=== PATIENT | female | born 2000 | race Caucasian/White ===

== ENCOUNTER 2022-07-16 13:42 | Outpatient (CLI) | payer OTHER, MEDICAID, SELFPAY | END 2022-07-16 13:43 | disposition home or self-care (01) | PROVIDERS: PCP Family Medicine; Visit Provider Nurse Practitioner Family | DX: R10.9 Unspecified abdominal pain (principal) | CPT/HCPCS: 87086 ==

== ENCOUNTER 2024-01-03 11:45 | Outpatient (CLI) | payer OTHER, SELFPAY ==
--- OUTSIDE RECORDS SUMMARY | 2024-01-03 11:46 | XMS_ITS | Clinical Summary ---
Author Organization [employer] [facility] Address [place], [place] [address] Care Team Providers Care Pipe Production Worker Name Role Phone Pcp, No Primary Care Provider Unavailabl e Allergies No known active allergies Medications No known medications Active Problems No known active problems Encounters Date Type Department Care Team Description 11/22/2023 9:30 AM CDT - 11/22/2023 10:03 AM CDT Emergency [facility] [place] [address] [place] [id number] Brianna Jackson MD Dog bite, initial encounter (Primary Dx) Discharge Disposition: Home Self Care 11/22/2023 Travel from Last 3 Months Immunizations Name Administration Dates Next Due DTaP 09/30/2006, 4,01/31/2002,2001,2001 HIB-HepB (Comvax) 08/16/2003,2001,09/20/19 02 Hepatitis A (Peds) 09/30/2006 Inactivated Polio Vaccine 09/30/2006,,2001,2001 MMR 09/12/2002 MMRV 09/30/2006 Pneumococcal conj 7-Valent ( Prevnar 7) 01/31/2002,2001,2001 Varicella Vaccine 09/12/2002 Social History Tobacco Use Types Packs/Day Years Used Date Smoking Tobacco: Never Assessed Sex and Gender Information Value Date Recorded Sex Assigned at Not on file Gender Identity Not on file Sexual Orientation Not on file Last Filed Vital Signs Vital Sign Reading Time Taken Comments Blood Pressure 140/72 11/22/2023 9:33 AM CDT Pulse 73 11/22/2023 9:33 AM CDT Temperature 36.3 ??C (97.3 ??F) 11/22/2023 9:33 AM CD T Respiratory Rate 16 11/22/2023 9:33 AM CDT Oxygen Saturation 98% 11/22/2023 9:33 AM CDT Inhaled Oxygen Concentration - - Weight 110.5 kg (243 lb 8 oz) 11/22/2023 9:33 AM CDT Height 167.6 cm (5' 6) 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 Body Mass Index - - Plan of Treatment Health Maintenance Due Date Last Done Comments Tdap 2012 Depression screening for age 12+ 2013 HIV for age 15-65 2016 HPV series for age 9-26 (1 - 3-dose series) 2016 BMI (ht and wt on same day) for age 18+ 2019 Hepatitis C screening for ag e 18-79 2019 Tetanus booster 2021 Pap test for age 21-65 2022 COVID-19 vaccine series ( season) 2023 01/21/2021, 12/31/2020 Influenza for age 9-49 01/30/2024 Pneumococcal series for age 6-64 Aged Out 01/31/2002, 2001, 2001 No longer eligible based on patient's age to complete this topic Care Teams Pipe Production Worker Relationship Specialty Start Date End Date Pcp, No . PCP - General 11/22/23
== END 2024-01-03 11:46 | disposition home or self-care (01) ==
LOC: NFLDREF 11:45
PROVIDERS: PCP Family Medicine; Visit Provider Obstetrics & Gynecology
DX: Z32.01 Encounter for pregnancy test, result positive (principal)
CPT/HCPCS: 84702

== ENCOUNTER 2024-01-05 14:08 | Outpatient (CLI) | payer OTHER, SELFPAY ==
--- OUTSIDE RECORDS SUMMARY | 2024-01-11 05:57 | XMS_ITS | Clinical Summary ---
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 PCP - General 11/22/23
== END 2024-01-05 14:09 | disposition home or self-care (01) ==
LOC: NFLDREF 01-11 05:56
PROVIDERS: PCP Family Medicine; Referring Provider Family Medicine; Visit Provider Obstetrics & Gynecology
DX: O20.9 Hemorrhage in early pregnancy, unspecified (principal)
CPT/HCPCS: 84702

== ENCOUNTER 2024-02-01 10:43 | Outpatient (CLI) | payer OTHER, SELFPAY ==
--- OUTSIDE RECORDS SUMMARY | 2024-02-01 10:46 | XMS_ITS | Clinical Summary ---
Author Organization [employer] [facility] Address [place], [place] [address] Care Team Providers Care Upward Bound Director Name Role Phone Pcp, No Primary Care Provider Unavailabl e Allergies No known active allergies Medications No known medications Active Problems No known active problems Encounters Date Type Department Care Team Description 11/22/2023 9:30 AM CDT - 11/22/2023 10:03 AM CDT Emergency [facility] [place] [address] [place] [phone] Brianna Jackson MD Dog bite, initial encounter [...] 167.6 cm (5' 6) 04/08/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 PCP - General 11/22/23
--- NOTE | 2024-02-01 11:00 | CRLHL7_ITS ---
For Patients: As a result of the Cures Act, medical imaging exams and procedure reports are released immediately into your electronic medical record. You may view this report before your referring provider. If you have questions, please contact your health care provider. INDICATION: First trimester scan, establish dates. COMPARISON: None. TECHNIQUE: Real-time wills-scale imaging of the pelvis was performed. FINDINGS: Sonographic imaging demonstrates a single living intrauterine gestation. The embryo demonstrates a regular cardiac rate measuring 163 beats per minute. The embryo`s crown-rump length measurement of 1.6 cm corresponds to a gestational age of 8 weeks 0 days with a sonographic due date of 09/12/2024. There is a normal-appearing yolk sac. There are no gross abnormalities noted within the embryo at this early state of development. The gestational sac has a normal appearance. There is no evidence of a perigestational hemorrhage. The amount of fluid within the sac appears appropriate for gestational age. The cervix is closed. The myometrium appears normal. Left ovary not visualized. Corpus luteal cyst right ovary. There are no suspicious fluid collections noted in the cul-de-sac. IMPRESSION: Normal first trimester OB ultrasound exam. Gestational age calculated at 8 weeks 0 days with a sonographic due date of 09/12/2024. Dictated by Gwyn Casey MD @ 02/01/2024 11:50:43 AM (Electronically Signed)
== END 2024-02-01 10:44 | disposition home or self-care (01) ==
PROVIDERS: PCP Family Medicine; Visit Provider Physician Assistant
DX: Z34.91 Encounter for supervision of normal pregnancy, unspecified, first trimester (principal); Z3A.08 8 weeks gestation of pregnancy
CPT/HCPCS: 76817

== ENCOUNTER 2024-02-01 12:13 | Outpatient (CLI) | payer OTHER, SELFPAY ==
--- OUTSIDE RECORDS SUMMARY | 2024-02-01 12:17 | XMS_ITS | Clinical Summary ---
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 PCP - General 11/22/23
== END 2024-02-01 12:14 | disposition home or self-care (01) ==
PROVIDERS: PCP Family Medicine; Visit Provider Physician Assistant
DX: Z34.81 Encounter for supervision of other normal pregnancy, first trimester (principal)
CPT/HCPCS: 86592; 86703; 86704; 86706; 86762; 86787; 86803; 86850; 86900; 86901; 87086; 87340

== ENCOUNTER 2024-03-22 08:47 | Outpatient (CLI) | payer OTHER, SELFPAY ==
--- OUTSIDE RECORDS SUMMARY | 2024-03-22 08:51 | XMS_ITS | Clinical Summary ---
Author Organization [employer] [facility] Address [place] [address] Care Team Providers Care Equipment Records Supervisor Name Role Phone Pcp, No Primary Care Provider Unavailabl e Allergies No known active allergies Medications No known medications Active Problems No known active problems Immunizations Name Administration Dates Next Due DTaP [...] 167.6 cm (5' 6) 04/08/2021 8:06 PM SANE RN Body Mass Index - - Plan of [...] age to complete this topic Care Teams Equipment Records Supervisor Relationship Specialty Start Date End Date Pcp, No . PCP - General 11/22/23
[2024-03-22 21:11] LABS: Chlamydia DNA Amplified* NOT DETECTED (No Detected); GC DNA Amplified* NOT DETECTED (No Detected)
== END 2024-03-22 08:48 | disposition home or self-care (01) ==
PROVIDERS: PCP Family Medicine; Visit Provider Obstetrics & Gynecology
DX: Z34.82 Encounter for supervision of other normal pregnancy, second trimester (principal)
CPT/HCPCS: 87491; 87591; 87624; 87625; 88141; 88142

== ENCOUNTER 2024-04-18 12:03 | Outpatient (CLI) | payer OTHER, SELFPAY ==
--- OUTSIDE RECORDS SUMMARY | 2024-04-18 12:05 | XMS_ITS | Clinical Summary ---
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 PCP - General 11/22/23
--- NOTE | 2024-04-18 12:15 | CRLHL7_ITS ---
For Patients: As a result of the Century Cures Act, medical imaging exams and procedure reports are released immediately into your electronic medical record. You may view this report before your referring provider. If you have questions, please contact your health care provider. OB ULTRASOUND ANATOMY, 04/18/2024 CLINICAL HISTORY: anatomy survey. TECHNIQUE: Transabdominal. FINDINGS: OMAYRA by LMP: 09/11/2024. GA: 19 weeks 1 day. POSITION: Vertex. CERVIX: Visualized. Technique: Transabdominal. Length of closed cervix: 4.0 cm. PLACENTA/CORD: Posterior. Technique: Transabdominal. Placenta tip to internal OS: 4.9 cm. Umbilical Cord: 3 vessel cord. Placental insertion: Central. AMNIOTIC FLUID: 4.8 cm. OBSERVED STRUCTURES: Calvarium/Spine Cerebellum: 1.9 cm, 19 weeks 6 days Cisternal Magna: 4.8 mm Nuchal Fold: 3.9 mm Lateral Ventricles: 5.9 mm CSP Choroid Plexus Midline Falx Spine ABDOMEN: Stomach Abd Cord Insert Urinary Bladder Kidneys borderline pelviectasis. Diaphragm FACE: Nose/Lips Orbital View Profile LIMBS: Upper Extremities Lower Extremities Hands Feet VASCULAR: 4 Ch Heart LVOT RVOT 3VV 3VTV BIOMETRY: BPD: 4.5 cm, 19 weeks 4 days. 71.4% HC: 17.2 cm, 19 weeks 6 days. 74.1% AC: 15.5 cm, 20 weeks 5 days. 89.4% FL: 3.2 cm, 19 weeks 6 days. 68.2% FL/AC: 20.343% HC/AC Ratio: 1.11 Heart Rate: 142 bpm Age by this US: 20 weeks 0 days OMAYRA by this US: 09/05/2024 EFW: 340.31 grams, 95.4% COMMENT: Borderline pelviectasis. Right renal pelvis measures 4 mm. Left renal pelvis measures 3 mm. IMPRESSION: Single live intrauterine gestation. Borderline renal pelviectasis measuring 4 mm and 3 mm. There are otherwise no gross anomalies visualized. Aury Harper M.D. Diagnostic/Breast Radiologist [email or web address] Transcribed: 9:20 am DW/Dictated by: Aury Harper MD @ 04/19/2024 9:01:00 AM (Electronically Signed)
== END 2024-04-18 12:04 | disposition home or self-care (01) ==
LOC: US 12:04
PROVIDERS: PCP Family Medicine; Visit Provider Obstetrics & Gynecology
DX: Z34.92 Encounter for supervision of normal pregnancy, unspecified, second trimester (principal); Z3A.19 19 weeks gestation of pregnancy
CPT/HCPCS: 76805

== ENCOUNTER 2024-06-13 08:14 | Outpatient (CLI) | payer OTHER, SELFPAY | END 2024-06-13 08:15 | disposition home or self-care (01) | LOC: NFLDREF 06-20 00:52 | PROVIDERS: PCP Family Medicine; Referring Provider Family Medicine; Visit Provider Obstetrics & Gynecology | DX: Z34.93 Encounter for supervision of normal pregnancy, unspecified, third trimester (principal) | CPT/HCPCS: 86592 ==

== ENCOUNTER 2024-07-21 10:55 | Outpatient (CLI) | payer OTHER, SELFPAY ==
--- NOTE | 2024-07-21 11:15 | CRLHL7_ITS ---
For Patients: As a result of the Century Cures Act, medical imaging exams and procedure reports are released immediately into your electronic medical record. You may view this report before your referring provider. If you have questions, please contact your health care provider. INDICATION: F/U pyelectasis on anatomy evaluation COMPARISON: 04/18/2024 TECHNIQUE: Real time wills scale imaging of the fetus was performed. FINDINGS: Sonographic imaging demonstrates a single living intrauterine gestation. Fetus demonstrates a regular cardiac rate of 126 beats per minute. Fetus has a vertex position. The placenta lies posteriorly. Amniotic fluid volume appears normal and there is a single deepest vertical pocket: 6.4 cm. Right renal pelvis measures 9.1 millimeters. Left renal pelvis measures 7.2 millimeters. Normal nose, lips, bladder and stomach. Previously, the right renal pelvis measured 4 millimeters in the left renal pelvis measured 3 millimeters. IMPRESSION: Bilateral renal pelviectasis measuring 9.1 millimeters and 7.2 millimeters. follow-up recommended. Dictated by Gwyn Casey MD @ 07/22/2024 2:03:32 PM (Electronically Signed)
== END 2024-07-21 10:56 | disposition home or self-care (01) ==
LOC: US 10:56
PROVIDERS: PCP Family Medicine; Visit Provider Obstetrics & Gynecology
DX: O35.EXX0 Maternal care for other (suspected) fetal abnormality and damage, fetal genitourinary anomalies, not applicable or unspecified (principal)
CPT/HCPCS: 76816

== ENCOUNTER 2024-08-14 19:31 | Outpatient (CLI) | payer OTHER, SELFPAY ==
[2024-08-14 19:54] VITALS: BP 134/81; PULSE 102; RESP 16; TEMP 36.9
[2024-08-14 19:55] VITALS: PULSE 102; O2SAT 97
[2024-08-14 20:16] LABS: Appearance Urine Clear (Clear); Bilirubin Urine Negative (Negative); Blood Urine Negative (Negative); Color Urine Yellow (Yellow); Glucose Urine Negative (Negative); Ketones Urine Negative (Negative); Leukocyte Esterase Urine 1+ (Negative); Nitrite Urine Negative (Negative); Protein Urine Negative (Negative); Urobilinogen Urine 0.2 (0.2-1.0)
[2024-08-14 20:26] LABS: Bacteria Urine Moderate; RBC Urine 0-2 (0-2); Squamous Epithelial Cell Urine Moderate (None-Few)
[2024-08-14] MEDS: ACETAMINOPHEN 500 MG TABLET 1000 MG PO (20:30)
[2024-08-14] MEDS: NITROFURANTOIN MONOHYD MACRO 100 MG CAPSULE PO (21:50)
--- NOTE | 2024-08-14 22:15 | PC.OBNST ---
NST Note NST Note Start: 08/14/24 19:37 Freq: ONCE Status: Active Protocol: Document 08/14/24 22:13 DUSTIN (Rec: 08/14/24 22:14 DUSTIN Mcgill) NST Note 2 Para (# of births) 1 EDC 09/11/24 Gestational Age In Weeks & Days 36 Weeks & 0 Days Patient Presented with Complaint(s) of Contractions/cramping,Pain If Pain, describe location back pain Other Complaints she reports she had deep cleaned the house 08/13 and felt like her baby was trying to claw out of her vagina and he was kicking a lot. Then today she has had on and off pain when walking, she reports going to the store and after she got back to her car was in so much pain she couldn't talk to her mom on the phone. UA positive and sent for culture, vaginitis panel and GBS swab collected. Prescription sent for UTI. Reactive Yes Appropriate for Gestational Age Yes KELLEE Noland RN Date 08/14/24 Reactive Yes Appropriate for Gestational Age Yes KELLEE Matthews RN Date 08/14/24 OB NST charge Yes Complete NST Note via Write Note Yes The provider's electronic signature indicates the NST is reactive/appropriate for gestational age. *Note to provider: If an addendum is required, open the patient's chart and click on the note under the Nurse/Allied Health tab.
[2024-08-14 22:28] LABS: Bacterial Vaginosis* Negative (Negative); Candida glab/krus NOT DETECTED (No Detected); Candida species DETECTED (No Detected); Trichomonas vaginalis NOT DETECTED (No Detected)
[2024-08-16 00:19] LABS: Strep B DNA Probe Negative (Negative)
[2024-08-16 02:21] LABS: Strep B Susceptibility Needed? No
== END 2024-08-14 22:03 | disposition home or self-care (01) ==
LOC: OB OUT 19:32 → OB 19:32
PROVIDERS: PCP Family Medicine; Visit Provider Obstetrics & Gynecology
DX: O47.03 False labor before 37 completed weeks of gestation, third trimester (principal); Z3A.36 36 weeks gestation of pregnancy
CPT/HCPCS: 59025; 81001; 81003; 81513; 87081; 87086; 87481; 87653; 87661; G0463; A9270

== ENCOUNTER 2024-08-18 13:57 | Outpatient (CLI) | payer OTHER, SELFPAY | END 2024-08-18 13:58 | disposition home or self-care (01) | LOC: US 13:57 | PROVIDERS: PCP Family Medicine; Visit Provider Obstetrics & Gynecology | DX: O36.63X0 Maternal care for excessive fetal growth, third trimester, not applicable or unspecified (principal); O35.EXX0 Maternal care for other (suspected) fetal abnormality and damage, fetal genitourinary anomalies, not applicable or unspecified; Z3A.36 36 weeks gestation of pregnancy | CPT/HCPCS: 76816 ==

== ENCOUNTER 2024-08-24 11:26 | Outpatient (CLI) | payer OTHER, SELFPAY | END 2024-08-24 11:27 | disposition home or self-care (01) | LOC: NFLDREF 08-25 03:13 | PROVIDERS: PCP Family Medicine; Referring Provider Family Medicine; Visit Provider Obstetrics & Gynecology | DX: Z34.93 Encounter for supervision of normal pregnancy, unspecified, third trimester (principal); Z3A.37 37 weeks gestation of pregnancy | CPT/HCPCS: 82728 ==

== ENCOUNTER 2024-09-04 09:18 | Inpatient (IN) | payer OTHER, SELFPAY ==
[2024-09-04] VITALS (19 sets, daily range): BP systolic 108–152; BP diastolic 57–104; PULSE 67–105; RESP 16; TEMP 36.7–37.1; O2SAT 98; BMI 40.5
[2024-09-04 10:04] LABS: Hemoglobin* 11.1 gm/dL (12.0-16.0); Mean Corpuscular HGB Conc 33 gm/dL (32-36); Mean Corpuscular Hemoglobin 26 pg (26-34); Mean Corpuscular Volume 80 fL (80-100); Platelet Count* 370 K/uL (140-440); Red Blood Count 4.23 m/uL (4.00-5.20); White Blood Count* 12.34 K/uL (4.50-11.00)
[2024-09-04 10:06] LABS: Slide Review Reflex No
[2024-09-04 10:15] LABS: Alanine Aminotransferase* 21 U/L (4-35); Aspartate Amino Transferase* 25 U/L (12-35); Blood Urea Nitrogen* 4 mg/dL (5-24); Creatinine* 0.5 mg/dL (0.5-1.5); Estimated Glomerular Filt Rate 135 ml/min
[2024-09-04 10:16] LABS: Total Protein Urine 11 mg/dL
[2024-09-04 10:17] LABS: Creatinine Urine 66.6 mg/dL; Protein Creatinine Ratio Urine 0.17 (0-0.19)
[2024-09-04] MEDS: miSOPROStoL 25 MCG/0.25 TABLET VAGINAL (14:55)
--- NOTE | 2024-09-04 14:58 | P.LDBA_ITS ---
Subjective History of Present Illness Time Seen by Provider: 15:02 Date Seen: 09/04/24 Narrative: Patient is being admitted to Labor and Delivery for induction of labor due to gestational hypertension. She is a 24 year old at 39.0 weeks gestation. Her full history and physical was dictated by Dr. Cole on 08/18/24. Please see this for details. Patient presented for routine care in clinic. During vitals check, she was noted to have high blood pressures of 148/88, 168/94. Denies any persistent headache, vision changes, SOB, right upper quadrant/epigastric pain, or rapidly expanding edema. She was then directed to labor and delivery which she continues to have mild range in blood pressures but no more severe range in blood pressures. Pre E labs were drawn: Hgb 11.1 Plt 370 Cr 0.5 ALT 21 AST 25 Protein creatinine ratio 0.17 Discussed with patient that she meets criteria for gestational hypertension. With this diagnosis, recommendation is to deliver at 37 weeks or at time of diagnosis if beyond 37 weeks. She is amenable to induction of labor. Denies LOF, vaginal bleeding or abnormal vaginal discharge. Specific Issues/Plans Spouse: Bony. Son: Nader. Baby: Boy! H&P done on 08/18/[address] Cole. # obesity, BMI 37.3 Hemoglobin A1c: 5.3 Aspirin 81 mg, family history of pre E in her mother [x] growth US at 36 weeks (95%ile at FAS, hx of macrosomia with prior at 9lb 3oz at 38w6d): EFW 88%, BPD >97%, HC 95%, AC 88%, FL 57% # Anemia dx at 37 weeks (Routine hgb missed previously) - 10.6 - Start supplemental iron marielle - CBC on admission for delivery # history of depression and anxiety, currently doing well without treatment # history of nicotine use, vaping. Quit with positive UPT # Hep B nonimmune: low risk. Planning repeat HepB series # Right renal pyelectasis 4 mm * Repeat US at 32 weeks: Bilateral renal pelviectasis measuring 9.1 millimeters and 7.2 millimeters. * Repeat ultrasound at 36 weeks: Right renal pelvis 9.9 mm, left 5.5 mm * follow-up recommended # Persistent nausea # Suspect GERD # Constipation - on miralax daily, failed to respond to colace Recommend starting senokot-S and omeprazole daily Goal to reduce zofran as this is highly constipating, Rx for reglan sent COVID: 03/22/24 Flu shot: 03/22/24 Tdap: 07/05/24 RSV: 08/01/2024 34 wk hgb: 10.6 on 08/24 GBS: Negative 08/14 Imagin04/18/2024: survey showed no anatomic abnormality except dilated right renal pelvis 4mm. EFW 95%. 07/21: R renal pelvis 9.1mm, L renal pelvis 7.2mm. Cephalic, MVP 6.4cm, FHR 126bpm 08/18/24: EFW 3383 g (88%), BPD >97%, HC 95%, AC 88%, FL 57%, SDP 5.7 cm, vertex. Right renal pelvis: 9.9 mm, left renal pelvis 5.5 mm. OB - Problem Based A/P Additional Plan (1) Gestational hypertension: Status: Acute Plan - Difficult to place cook given that cervix is very posterior. - Will give one dose of misoprostol 25 mcg and reassess Delivery/Labor/Induction Plan Plan: induction OB Exam Physical Exam Vital signs: Temp Pulse BP Pulse Ox 98.7 F 83 137/87 98 09/04/24 09:34 09/04/24 13:48 09/04/24 13:48 09/04/24 09:35 Narrative: Physical exam: General: No acute distress Psych: Alert and oriented x3, full affect HEENT: Normocephalic, atraumatic Lungs: Unlabored breathing Neuro: No focal deficit. Mentating appropriately Abdominal: Gravid. Cephalic. Soft, nontender, nondistended Pelvic exam: 1.5/60/-3, moderately soft, very posterior
[2024-09-04] MEDS: ACETAMINOPHEN 500 MG TABLET 1000 MG PO (17:22)
--- NOTE | 2024-09-04 18:33 | PM.OBPNL ---
Subjective Time Seen by Provider: 18:00 Date Seen: 09/04/24 Objective Vital Signs: Last Vital Signs Temp 98.7 F 09/04/24 09:34 Pulse 88 09/04/24 17:16 BP 125/71 09/04/24 17:16 Pulse Ox 98 09/04/24 09:35 Pelvic Exam Dilation (cm): 1.5 Effacement (%): 50 Station: -3 Comments: - s/p 1 dose of 25 mcg of misoprostol - Cook cath placed 50cc/50cc at 1800 without complications.
[2024-09-04] MEDS: MORPHINE 10 MG/ML inj IM (21:17)
[2024-09-04] MEDS: hydrOXYzine pamoate 25 MG CAPSULE 100 MG PO (21:17)
[2024-09-05] VITALS (98 sets, daily range): BP systolic 101–164; BP diastolic 54–88; PULSE 64–118; RESP 16–20; TEMP 36.5–37.3; O2SAT 86–100
[2024-09-05] MEDS: OXYTOCIN 30 unit/500 ML in NS 30 UNIT/500 ML BAG IVPB (00:22)
[2024-09-05] MEDS: LACTATED RINGERS 1000 ML 1,000 ML 125 ML IV ×3 (00:22→13:24)
[2024-09-05] MEDS: ONDANSETRON 2 MG/ML inj 4 MG IV (06:06)
--- NOTE | 2024-09-05 08:30 | PM.OBPNL ---
Subjective Time Seen by Provider: 10:00 Date Seen: 09/05/24 Narrative: Linda is a 24-year-old woman at 39 weeks, 1 day gestation here for induction of labor for gestational hypertension. otherwise complicated by BMI 37.3, anemia, depression anxiety. She has had 1 severe range blood pressures since admission. That being said, the majority of her blood pressures have been normal. She had a single dose of vaginal Cytotec, followed by Cook catheter for cervical ripening overnight. She has recently started to have strong contractions. Objective Exam: Gen - Doing side-lying release in bed Abd - Soft, NT, gravid, EFW 8 lbs SVE - 5 / 85 / -1. SROM on exam for clear fluid. Vital Signs: Last Vital Signs Temp 98.8 F 09/05/24 07:57 Pulse 74 09/05/24 08:01 Resp 20 09/05/24 07:57 BP 125/74 09/05/24 08:01 Pulse Ox 98 09/05/24 08:00 Comments: tracing: Baseline 140 / accels present / no decels / moderate variabilty. Contractions Q 2 min Pitocin at 13 mU / min Contractions Pitocin Rate (mU/min): 13 Assessment Amniotic Membrane Status: SROM Status: Category l Tracing Comments: Reassuring GBS negative Labor Progress: About to enter active labor. Progressing well on pitocin Maternal Status: Gestational HTN without severe features Plan Plan: Continue pitocin augmentation Continuous monitoring
[2024-09-05] MEDS: LIDOCAINE 2% (PF) 5 ML VIAL EPIDURAL (11:37)
[2024-09-05 12:24] LABS: Rapid Plasma Reagin (RPR) Non Reactive (Non Reactive)
[2024-09-05] MEDS: ROPIVACAINE 0.2% 100 ml 100 ML 12 MG EPIDURAL (12:24)
[2024-09-05] MEDS: PHENYLEPHRINE 100 MCG/ML SYRINGE IVP ×2 (12:28→12:29)
--- NOTE | 2024-09-05 12:30 | P.ANBPRC_ITS ---
[facility] Medical History Constipation ?K59.00 - Constipation, unspecified (ICD-10) Generalized anxiety disorder ?F41.1 - Generalized anxiety disorder (ICD-10) Recurrent major depressive disorder ?F33.9 - Major depressive disorder, recurrent, unspecified (ICD-10) Spontaneous vaginal delivery (04/11/19) ?O80 - Encounter for full-term uncomplicated delivery (ICD-10) History of suicidal ideation ?Z86.59 - Personal history of other mental and behavioral disorders (ICD-10) History of self mutilation ?Z91.52 - Personal history of nonsuicidal self-harm (ICD-10) Dermatitis ?L30.9 - Dermatitis, unspecified (ICD-10) Acne ?L70.9 - Acne, unspecified (ICD-10) Surgical History Osborne teeth removed ?K08.409 - Partial loss of teeth, unspecified cause, unspecified class (ICD- 10) Family History Maternal Grandmother Breast cancer Paternal Grandmother Ovarian cancer Mother Diabetes Maternal Grandfather Colon cancer Paternal Grandfather Colon cancer Social History Narrative: 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 Marital status: Single. Sikhism/cultural needs: no. Chemical or radiation exposure: no. Pre- tobacco use: Yes, occasional vaping. Pre- alcohol use: Occasional. Current tobacco use: no. Current alcohol use: no. Recreational drug use: no. Dietary restrictions: no. Blood transfusion acceptable in an emergency: yes. PSYCHOSOCIAL HISTORY: History of depression or currently depressed: Yes, history. Current or past physical, emotional, or sexual mistreatment: Denies. Problems that will make it hard to make it to appointments: Denies. What is your current living situation?: I presently have a place to live Problems where you live: no known problems In the past 12 months, utilities in danger of being shut off: no In past 12 months, lack of transportation kept you from medical appts, meetings, work, or getting things needed for daily living: no In the past 12 mos, have been you worried that your food would run out before you had money to buy more?: never true In the past 12 mos, the food you bought just didn't last and you didn't have money to buy more?: never true Highest level of school completed/degree received: high school graduate Physical activity type: walking Smoking Status: Never smoker Non-prescribed substance use: denies use How often does anyone, including family, friends and others, physically hurt you : never How often does anyone, including family, friends and others, insult or talk down to you: never How often does anyone, including family, friends and others, threaten you with harm: never How often does anyone, including family, friends and others, scream or curse at you: never Meds Home Medications and Allergies Home Medications ?Medication ?Instructions ?Recorded ?Confirmed ?Type [id number] 3-fat com #1 27 1 cap PO DAILY 02/01/24 09/04/24 History mg-1 mg-300 mg capsule aspirin 81 mg capsule 81 mg PO QDAY 03/22/24 09/04/24 History ferrous sulfate 325 mg (65 mg 325 mg PO Q OTHER DAY 08/30/24 09/04/24 History iron) tablet (Feosol) Allergies Allergy/AdvReac Type Severity Reaction Status Date / Time No Known Drug Allergies Allergy Verified 09/04/24 18:45 Results Labs Labs: Laboratory Results - last 24 hr 09/04/24 09:47 RPR Screen Non Reactive Blood Type O Positive Antibody Screen NEGATIVE Vital Signs Vital Signs: Last Vital Signs Temp 97.9 F 09/05/24 11:29 Pulse 88 09/05/24 12:29 Resp 20 09/05/24 11:29 BP 113/70 09/05/24 12:29 Pulse Ox 98 09/05/24 12:26 Weight: 117.435 kg Height: 170.18 cm Anesthesia Procedures Epidural Insertion Patient Location: OB Start Time: 11:30 Stop Time: :30 Start Date: 09/05/24 Stop Date: 09/05/24 Reason for Block: primary anesthetic Patient Position: sitting Performed By: Maverick Callahan Preanesthetic Checklist: IV checked, risks and benefits discussed, surgical consent, monitors and equipment checked, pre-op evaluation, timeout performed and anesthesia consent Prep: chlorhexidine gluconate Monitoring: blood pressure monitoring, rn cardiac rehab, continuous pulse oximetry and heart rate Approach: midline Vertebral Space: lumbar (1-5) Needle Type: Tuohy needle Injection Technique: continuous catheter Needle gauge: 17 Needle Length (cm): 10 cm Needle Insertion Depth (cm): 6 Catheter Gauge: 19 Catheter Type: multi-orifice Catheter at skin depth (cm): 12 Test Dose Result: negative and lidocaine 1.5% with epinephrine 1 to 200,000 Events: other
[2024-09-05] MEDS: fentaNYL 250 MCG/5 ML inj 100 MCG EPIDURAL (12:32)
[2024-09-05] MEDS: ACETAMINOPHEN 500 MG TABLET 1000 MG PO (14:26)
--- NOTE | 2024-09-05 16:11 | W.PM.VAGD1_ITS ---
Procedure Delivery date: 09/05/24 Procedure Done: Global Procedure Details: The patient is a 24 year-old G 2 P 1-0-0-1 woman admitted on 09/04/2024 at 39 Weeks, 0 Days gestation for induction of labor for gestational hypertension.? Cervical exam was unfavorable on admission with membranes intact in vertex presentation.? tracing was reassuring.? She had a single dose of vaginal Cytotec for cervical ripening, followed by Cook catheter. Labor began around 9:00 a.m. on 09/05/2024 SROM occurred at 10:09 a.m. on 09/05/2024 with clear fluid. ? Labor Analgesia:? Epidural ? Pitocin:? Yes ? Complete:? 2:46 p.m. ? Pushing:? 3:00 p.m. ? heart tones during second stage were reassuring. ? At 3:47 p.m. a viable male infant delivered in vertex TYE presentation over small second-degree perineal laceration via vaginal delivery.? Infant's head was delivered with maternal expulsive efforts. I was unable to deliver the anterior shoulder with gentle guidance of the head downward. Shoulder dystocia was diagnosed. The following maneuvers for employed to resolve the dystocia: * Tom maneuver, unsuccessful * Suprapubic pressure, unsuccessful * Delivery of the posterior shoulder, successful. I was able to insert my fingers, posteriorly to anteriorly, beneath the axilla and guide the shoulder outward through the introitus. The anterior shoulder was then delivered, followed by the remainder of the infant's body. Infant was placed briefly on maternal abdomen.? Cord was immediately clamped and cut and infant was passed off to attending nurses for assessment for resuscitation, which was not ultimately required. Total time from delivery of head to anterior shoulder was approximately 40 seconds. Nose and mouth were bulb suctioned.? Infant weight was 10 lb, 5 oz.? 7 at 1 minute and 9 at 5 minutes.? Nuchal cord: No. ? Placenta delivered spontaneously and complete at 3:51 p.m. with a 3 vessel cord. ? Mother and were stable after delivery. ? Lacerations:? Second-degree perineal, repaired with 2-0 Vicryl in the usual fashion. ? Blood loss: 200 mL. Blood loss measurement type: QBL ? Sponge and needles counts are correct. Events: Gestational Hypertension Intrapartal Events: Labor Augmentation and Labor Induction Delivery augmentation: pitocin Delivery monitor: external FHT Route of delivery: Laceration description: Perineal - 2nd Degree Delivery repair: Vicryl Estimated blood loss (mL): 200 Anesthesia type: Epidural
[2024-09-05] MEDS: IBUPROFEN 600 MG TABLET PO (16:37)
[2024-09-05] MEDS: NIFEdipine ER 30 MG TAB PO (18:43)
[2024-09-06 04:50] VITALS: BP 117/78; PULSE 83; RESP 16; TEMP 36.9; O2SAT 97
[2024-09-06 06:09] LABS: Basophils Percent Auto 0.2 % (0.0-3.0); Eosinophils Percent Auto 1.5 % (0.0-7.0); Hemoglobin* 10.4 gm/dL (12.0-16.0); Immature Granulocytes Pct Auto 0.4 %; Lymphocytes Percent Auto 23.5 % (20-44); Mean Corpuscular HGB Conc 33 gm/dL (32-36); Mean Corpuscular Hemoglobin 26 pg (26-34); Mean Corpuscular Volume 80 fL (80-100); Monocytes Percent Auto 7.9 % (0.0-11.0); Neutrophils Percent Auto 66.5 % (42.0-72.0); Platelet Count* 332 K/uL (140-440); Red Blood Count 3.98 m/uL (4.00-5.20); White Blood Count* 15.25 K/uL (4.50-11.00)
[2024-09-06 06:13] LABS: Slide Review Reflex No
[2024-09-06 06:26] LABS: Alanine Aminotransferase* 25 U/L (4-35); Aspartate Amino Transferase* 50 U/L (12-35); Blood Urea Nitrogen* 4 mg/dL (5-24); Creatinine* 0.5 mg/dL (0.5-1.5); Est. Creatinine Clearance* 170.17; Estimated Glomerular Filt Rate 135 ml/min
[2024-09-06 07:35] VITALS: BP 111/72; PULSE 89; RESP 18; TEMP 36.9; O2SAT 96
[2024-09-06] MEDS: IBUPROFEN 600 MG TABLET PO ×2 (08:11→15:03)
[2024-09-06] MEDS: DOCUSATE SODIUM 100 MG CAPSULE PO (08:11)
[2024-09-06] MEDS: NIFEdipine ER 30 MG TAB PO ×2 (08:11→20:59)
[2024-09-06 12:01] VITALS: BP 117/71; PULSE 98; RESP 16; TEMP 36.7; O2SAT 97
[2024-09-06] MEDS: ACETAMINOPHEN 500 MG TABLET 1000 MG PO ×2 (12:29)
--- NOTE | 2024-09-06 15:56 | P.OBPN_ITS ---
OB - PN:Subj Subjective Date Seen: 09/06/24 Narrative: Linda is a 24 year old G2 now P2002 who was admitted for IOL for GHTN and proceeded to have a vaginal with a 2nd degree laceration that was repaired.The patient feels well.? The pain is well controlled with current medications.? She has no new complaints.? Urinary output is adequate and she is voiding without difficulty.? Has a good appetite, is tolerating a general diet, is passing flatus, and has had a couple of bowel movements.? Has scant amount of rubra lochia.? She is ambulating well. She is and reports her nipples are very sore. Trinidad, the IBCLC, saw her today. She is using soothies. ?She is taking Nifedipine ER BID 30mg. No AYALA, vision changes or RUQ pain. OB - PN: Obj Exam Physical Exam: Vital signs: Temp Pulse Resp BP Pulse Ox O2 Del Method 98.1 F 98 16 117/71 97 Room Air 09/06/24 12:01 09/06/24 12:01 09/06/24 12:01 09/06/24 12:01 09/06/24 12:01 09/06/24 12:01 Narrative: GENERAL APPEARANCE:? normal affect, alert, no distress MOOD:? appropriate CHEST:? clear to auscultation HEART:? regular rate and rhythm ABDOMEN:? soft, non-tender the uterine fundus is At Umbilicus, Midline and is appropriate for the stage of recovery. PERINEUM:? deferred due to number of people visiting in the room EXTREMITIES:? normal and minimal edema OB - PN: Obj Data Labs Labs: Laboratory Results - last 24 hr 09/06/24 05:49 WBC 15.25 H RBC 3.98 L Hgb 10.4 L Hct 32.0 L MCV 80 MCH 26 MCHC 33 RDW Coeff of Alison 14.0 Plt Count 332 Neut % (Auto) 66.5 Lymph % (Auto) 23.5 [place] % (Auto) 7.9 Eos % (Auto) 1.5 Baso % (Auto) 0.2 Neut # (Auto) 10.10 H Lymph # (Auto) 3.60 H [place] # (Auto) 1.20 H Eos # (Auto) 0.20 Baso # (Auto) 0.00 Abs Immat Gran (auto) 0.10 Imm/Tot Granulo (auto) 0.4 BUN 4 L Creatinine 0.5 Estimated Creat Clear 170.17 Estimated GFR 135 AST 50 H ALT 25 OB - PN: A/P Delivery Assessment and Plan (1) care and examination of lactating mother: Status: Acute (2) Gestational hypertension: Status: Acute Plan Comments: PP day #1 Routine care May see as desired continue current medication for HTN regimen. Continue to work on effective latching. Pt warned baby will likely cluster feed tonight. Anticipate discharge 09/07/2024
[2024-09-06 16:57] VITALS: BP 127/84; PULSE 99; RESP 18; TEMP 36.8; O2SAT 97
[2024-09-06 20:15] VITALS: BP 116/79; PULSE 82; RESP 16; O2SAT 98
[2024-09-06 23:50] VITALS: BP 130/78; PULSE 86; RESP 16; TEMP 36.7; O2SAT 98
[2024-09-07 05:30] VITALS: BP 116/70; PULSE 77; RESP 16; TEMP 36.7; O2SAT 96
[2024-09-07] MEDS: ACETAMINOPHEN 500 MG TABLET 1000 MG PO (05:39)
[2024-09-07 06:10] LABS: Hematocrit 30.5 % (33.0-51.0); Hemoglobin* 9.7 gm/dL (12.0-16.0); Mean Corpuscular HGB Conc 32 gm/dL (32-36); Mean Corpuscular Hemoglobin 26 pg (26-34); Mean Corpuscular Volume 81 fL (80-100); Platelet Count* 355 K/uL (140-440); Red Blood Count 3.75 m/uL (4.00-5.20); White Blood Count* 11.86 K/uL (4.50-11.00)
[2024-09-07 06:12] LABS: Slide Review Reflex No
[2024-09-07 06:24] LABS: Alanine Aminotransferase* 29 U/L (4-35); Aspartate Amino Transferase* 49 U/L (12-35); Blood Urea Nitrogen* 6 mg/dL (5-24); Creatinine* 0.6 mg/dL (0.5-1.5); Est. Creatinine Clearance* 141.81; Estimated Glomerular Filt Rate 129 ml/min
--- NOTE | 2024-09-07 08:27 | P.DS_ITS ---
DS: Providers Provider Date Seen: 09/07/24 Date of admission: 09/04/24 09:18 Primary care physician: Jones Arnett MD Admitting Clinician: Nataliia Chavez MD Attending Physician on discharge: Diogo Montaño CNM Date of Discharge: 09/07/24 DS: Diagnosis Discharge Diagnosis (1) (normal spontaneous vaginal delivery): Status: Acute (2) care and examination of lactating mother: Status: Acute (3) Gestational hypertension: Status: Acute Exam Narrative: Exam Narrative: VSS. ?Afebrile GENERAL APPEARANCE: ?normal affect, alert, no distress MOOD: ?appropriate HEENT: normocephalic, neck supple, full ROM CHEST: ?Symmetrical chest wall movement. ?Normal respiratory effort. ?Clear to auscultation HEART: ?regular rate and rhythm ABDOMEN: ?soft, non-tender. Uterine fundus is firm, at Umbilicus, Midline and is appropriate for the stage of recovery. ?Bowel sounds present. PERINEUM:? mild edema of the perineum, there is a Perineal Laceration,? 2nd degree that is healing well. EXTREMITIES: ?normal and no edema SKIN: warm, dry. ? ? Const: Vital Signs, click to edit/add: Vital Signs - 24 hr 09/06/24 12:01 09/06/24 16:57 09/06/24 20:15 Temperature 98.1 F 98.2 F Pulse Rate [Pulse Oximeter] 98 99 82 Respiratory Rate 16 18 16 Blood Pressure [Ri ght Arm] 117/71 127/84 116/79 Pulse Oximetry 97 97 98 Oxygen Delivery Me thod Room Air Room Air Room Air 09/06/24 23:50 09/07/24 05:30 Temperature 98.0 F 98.0 F Pulse Rate [Pulse Oximeter] 86 77 Respiratory Rate 16 16 Blood Pressure [Ri ght Arm] 130/78 116/70 Pulse Oximetry 98 96 Oxygen Delivery Me thod Room Air Room Air Documenting provider has reviewed patient's vital signs: yes OB - DS: Summary Hospital Course Hospital Course: Linda is a 24 y.o. who was admitted to [facility] for labor. ?She had an uncomplicated NVD.?The patient feels well. ?The pain is well controlled with current medications. ?She has no new complaints. ?She is breast feeding and reports things are going well.? the patient has done well.? Vitals have been stable.? She has remained afebrile.? Has a good appetite, is tolerating a general diet. ?She is voiding without difficulty.? She is passing gas and has had a bowel movement.? She is ambulating and denies any dizziness.? Has Small amount of rubra lochia. ?She is planning an IUD for prevention. Peripartum Data delivery method: Vaginal Laceration description: Perineal - 2nd Degree complications: none [place] Gender: Male Infant Discharge Plan: Home Status at Discharge Functional status at discharge: independent ambulation Overall status at discharge: patient is progressing back to baseline Time Spent with Patient Time attestation: Total time spent providing and/or coordinating discharge services: Time spent: Less than 30 minutes Discharge Plan Discharge Disposition: Home, Self-Care Date of Admission: 09/04/24 09:18 Attending Provider on Discharge: Diogo Montaño Primary Care Provider: Jones Arnett Condition: Stable Anticipated Discharge Date/Time: 09/07/24 11:46 Discharge Medications: New nifedipine 30 mg Tablet Extended Release 30 mg PO Q12H Qty: 120 0RF ibuprofen 600 mg Tablet 600 mg PO Q6H PRNQty: 30 0RF Continued docusate sodium [Colace] 100 mg capsule 100 mg PO BID Qty: 60 2RF [id number]-mxvl-ST-omega 3-fat com #1 27-1-300 mg capsule 1 cap PO DAILY ferrous sulfate [Feosol] 325 mg (65 mg iron) tablet 325 mg PO Q OTHER DAY omeprazole 20 mg capsule,delayed release(DR/EC) 20 mg PO QDAY Qty: 30 0RF Discontinued aspirin 81 mg capsule 81 mg PO QDAY ondansetron 4 mg tablet,disintegrating 4 mg PO Q6-8H PRN (Reason: nausea and vomiting) Qty: 30 0RF Discharge Orders: Discharge Order (Routine); Ordered 09/07/24 Ordered By: Diogo Montaño Patient Education: Hypertension During (DC) Additional Instructions: ACTIVITY RESTRICTIONS: * Nothing vaginally for 6 weeks: no tampons/intercourse * Off of work/school for a minimum of 6 weeks Symptoms to report to doctor: -Bleeding that saturates more than one pad per hour ?-Passing clots larger than the size of a golf ball ?-Pain not relieved by prescribed medication ?-Fever above 100.4 degrees Fahrenheit ?-A foul vaginal odor ?-Difficulty in emotions, mood and functions ?-Thoughts of hurting yourself and/or ?-Painful, reddened area in your breast ?-Any drainage, redness or tenderness in your IV/epidural site ?-Severe headache that doesn't improve after taking medications ?-Changes in vision, including temporary loss of vision, blurred vision, and/or light sensitivity ?-Upper abdominal pain (usually under ribs on the right side) ?-Decrease in urination or painful, frequent urinating ?-Chest pain ?-Shortness of breath ?-Tenderness or pain with redness and/swelling in the calf(s) of your leg Follow-up: 1. Blood pressure check on Wednesday09/11/2024 2. [facility] in 2 weeks: contraceptive counseling, screen for anxiety/depression. 3. A 6 week visit for an annual physical exam. consultation services are available to all mothers and babies for the first year after delivery.? To make an appointment, please call [phone]. Activity Level: Activity as Tolerated and Other Discharge Diet: Regular Follow Up Appointments: [facility] [Outside] Forms: MyHealth Info Instructions
[2024-09-07 08:49] VITALS: BP 123/74; PULSE 87; RESP 16; TEMP 36.7; O2SAT 97
[2024-09-07] MEDS: DOCUSATE SODIUM 100 MG CAPSULE PO (08:54)
[2024-09-07] MEDS: NIFEdipine ER 30 MG TAB PO (08:54)
[2024-09-07 12:06] VITALS: BP 134/83; PULSE 95; RESP 16; TEMP 36.9; O2SAT 97
== END 2024-09-07 14:50 | disposition home or self-care (01) | DRG 807 ==
PROVIDERS: Obstetrics & Gynecology; Admitting Provider Obstetrics & Gynecology; PCP Family Medicine; Visit Provider Obstetrics & Gynecology
DX: O13.4 Gestational [pregnancy-induced] hypertension without significant proteinuria, complicating childbirth (principal); Z37.0 Single live birth; Z3A.39 39 weeks gestation of pregnancy; Z79.82 Long term (current) use of aspirin; O99.214 Obesity complicating childbirth; E66.9 Obesity, unspecified; O99.344 Other mental disorders complicating childbirth; F32.A Depression, unspecified; O99.02 Anemia complicating childbirth; D64.9 Anemia, unspecified; O99.62 Diseases of the digestive system complicating childbirth; K21.9 Gastro-esophageal reflux disease without esophagitis; O70.1 Second degree perineal laceration during delivery; K59.00 Constipation, unspecified; R11.0 Nausea; Z78.9 Other specified health status; Z87.59 Personal history of other complications of pregnancy, childbirth and the puerperium; O35.EXX0 Maternal care for other (suspected) fetal abnormality and damage, fetal genitourinary anomalies, not applicable or unspecified; Z87.891 Personal history of nicotine dependence; O66.0 Obstructed labor due to shoulder dystocia
CPT/HCPCS: 01967; 36415; 59200; 82565; 82570; 84156; 84450; 84460; 84520; 85025; 85027; 86592; 86850; 86900; 86901; 88307; A9270; C1726; J2270; J2371; J2405; J2795; J3010; J7120

== ENCOUNTER 2024-09-08 13:11 | Outpatient (CLI) | payer OTHER, SELFPAY ==
--- NOTE | 2024-09-08 15:51 | P.LACCB_ITS ---
Consult Note - Mom Date of Visit Date of visit: 09/08/24 Reason for consultation: Assistance Needed and Infant Weight Concern Visit Code: Visit Patient's Information Phone number: [phone] : 2 Para: 2 Allergies No Known Drug Allergies Allergy (Verified 09/04/24 18:45) Mother's Medical History: Medical History (Updated 09/07/24 @ 07:57 by Trinidad Waggoner MD) Family history of colon cancer ?Z80.0 - Family history of malignant neoplasm of digestive organs (ICD-10) Family history of breast cancer ?Z80.3 - Family history of malignant neoplasm of breast (ICD-10) Social phobia ?F40.10 - Social phobia, unspecified (ICD-10) Vulvovaginal candidiasis ?B37.31 - Acute candidiasis of vulva and vagina (ICD-10) GERD (gastroesophageal reflux disease) ?K21.9 - Gastro-esophageal reflux disease without esophagitis (ICD-10) Constipation ?K59.00 - Constipation, unspecified (ICD-10) Generalized anxiety disorder ?F41.1 - Generalized anxiety disorder (ICD-10) Recurrent major depressive disorder ?F33.9 - Major depressive disorder, recurrent, unspecified (ICD-10) Spontaneous vaginal delivery (04/11/19) ?O80 - Encounter for full-term uncomplicated delivery (ICD-10) History of suicidal ideation ?Z86.59 - Personal history of other mental and behavioral disorders (ICD-10) History of self mutilation ?Z91.52 - Personal history of nonsuicidal self-harm (ICD-10) Dermatitis ?L30.9 - Dermatitis, unspecified (ICD-10) Acne ?L70.9 - Acne, unspecified (ICD-10) Delivery Information Delivery type: Vaginal Gestational Age: 39+1 Gestational Weight For Age: LGA Weight: 4.685 kg Discharge Weight: 4.366 kg Percentage weight loss: 6.8 Baby's Information Baby's Age at Visit: 3 days Baby's Provider or Clinic: [facility] Jaundice: Yes Past Experience Past Experience: Yes (x 2 years) Current Frequency of Day Feedings: all the time barely can put him down Frequency of Night Feedings: same Both Breasts: Yes Suck: strong Latch: shallow, painful. A little better since yesterday but still hurts Length of Time: 15-20 min ea side, then feeds again in an hour or so Goals: at least 1 year Pumping Pumping: No Supplementing EBM Supplement: Yes (using a friends donor milk) Formula Supplement: No Baby Elimination Number of Wet Diapers a Day: 5 in the last 24 hours Number of BM a Day: 3 in last 24 hours Breast/Nipple Condition Breast Information: Breasts are symmetrical with rounded lower quadrants, intramammary distance is less than 1.5 inches. No erythema. Nipples are supple, everted prior to feeding. Mom feeling fullness of milk coming in since midnight Breast Shape: Round Engorgement: Yes (slight, fullness better after nursing here in outpatient clinic) Interventions for Engorgement: Hand Expressing Breast Milk Maternal Nipple Condition - Left: Common Nipple and Other (small blister ) Maternal Nipple Condition - Right: Common Nipple and Other (small blister) Sore Nipples: Yes Interventions for Sore Nipples: Lansinoh/Nipple Cream and Soothies/Hydrogel Pads (doesn't like how these feel) Baby Assessment Skin: Normal Tongue/frenulum: Normal/elastic Palate: Average Lips: Relaxed and Symmetrical Jaw Alignment: Symmetrical Mucosa: [place], moist Onsite Observation Pre-Feed weight: 4.204 kg (10.3% weight loss from ) Post-Feed weight: 4.242 kg Milk Transferred (mL): 38 Position: Cross cradle Attachment/latch-on achieved: With difficulty (needed several attempts at relatch to get wide/deep enough latch) Suck pattern: Suck burst and normal rest Swallow: Audible, consistent Behavior following feed: Relaxed, sleepy Pre-Nursing Left Nipple: Crusting/Scabs (small healing blister) Pre-Nursing Right Nipple: Crusting/Scabs (small healing blister) Post-Nursing Left Nipple: Within Normal Limits Post-Nursing Right Nipple: Within Normal Limits Assessments/Interventions Assessments/Interventions: hubert latched well to both breasts and transferred 38ml for this feeding mom states this was his best feeding yet - more comfortable for her and more engaged in the feeding for him Mom's milk is in and lots of swallowing was heard. mom could tell when he was actively drinking vs when he switched to a flutter suck Education provided: Early feeding cues to maximize timing of latching, Asymmetric latch technique for wide/deep latch to increase milk, Transfer for baby and increase comfort for mom, Supply/demand nature of milk supply, Sore nipple treatment options (nipple cream and breast shells; may get silverettes- not to be used with creams) and Pumping for milk management Feeding Plan: Breastfeed for 10-15 on each breast, listening for active swallowing Pump both breasts as needed to relieve fullness as milk comes in only if needed Feed baby 15-30 ml of pumped milk after until baby not wanting the supplement given >1-% weight loss and jaundice Use a syringe/feeding tube, cup, or bottle for feedings based on preference- syringe and feeding tube SNS system given and discussed with family at visit today Rest, and repeat every 2-3 hours, watch for early feeding cues Follow-Up Recommend baby be seen by provider for:: keep f/u appt scheduled for 09/11 call center over the weekend for f/u if: not voiding/stooling as expected per chart, increased jaundice, not feeding every 2-3 hours, any other concerns Recommend mom be seen by provider for:: her provider if any symptoms related to preE Time Spent Time spent with patient (min): 90 (reviewing EMR and face to face with patient, and ) Meds Home Medications and Allergies Home Medications ?Medication ?Instructions ?Recorded ?Confirmed ?Type BJM-rwcr-RP-omega 3-fat com #1 27 1 cap PO DAILY 02/01/24 09/04/24 History mg-1 mg-300 mg capsule ferrous sulfate 325 mg (65 mg 325 mg PO Q OTHER DAY 08/30/24 09/04/24 History iron) tablet (Feosol) Allergies Allergy/AdvReac Type Severity Reaction Status Date / Time No Known Drug Allergies Allergy Verified 09/04/24 18:45
== END 2024-09-08 13:12 | disposition home or self-care (01) ==
PROVIDERS: PCP Family Medicine; Visit Provider Obstetrics & Gynecology
DX: Z39.1 Encounter for care and examination of lactating mother (principal)
CPT/HCPCS: G0463

== ENCOUNTER 2024-09-08 20:19 | Inpatient (IN) | payer OTHER, SELFPAY ==
[2024-09-08] VITALS (22 sets, daily range): BP systolic 101–160; BP diastolic 58–97; PULSE 86–105; RESP 5–25; TEMP 37.2–37.5; O2SAT 96–99; BMI 38.2
--- OUTSIDE RECORDS SUMMARY | 2024-09-08 20:21 | XMS_ITS | Clinical Summary ---
Author Organization [facility] Address [address] [place] [id number] Care Team Providers Care Avionics Mechanic Name Role Phone Pcp, No Primary Care Provider Unavailabl e Allergies No known active allergies Medications No known medications Active Problems No known active problems Encounters Date Type Department Care Team Description 09/06/2024 Lab Requisition [facility] [phone] Brie Richards MD from Last 3 Months Immunizations Immunization Administration Dates Next Due DTaP 09/30/2006, 4,01/31/2002,2001,2001 HIB-HepB (Comvax) 08/16/2003,2001,09/20/19 02 Hepatitis A (Peds) 09/30/2006 Inactivated Polio Vaccine 09/30/2006,,2001,2001 MMR 09/12/2002 MMRV 09/30/2006 Pneumococcal conj 7-Valent ( Prevnar 7) 01/31/2002,2001,2001 Varicella Vaccine 09/12/2002 Social History Tobacco Use Types Packs/Day Years Used Date Smoking Tobacco: Never Assessed Interpersonal Safety Answer Date Record ed Are you being hit, kicked, p ushed or yelled at (see row info)? No 11/22/2023 Interpersonal Safety Abuse 12 - 18 Not on file 11/22/2023 Interpersonal Safety Ambulatory Vulnerability No t on file 11/22/2023 Comments No Sex and Gender Information Value Date Recorded Sex Assigned at Not on file Legal Sex Female 5:45 AM [employer] Gender Identity Not on file Sexual Orientation [...] 167.6 cm (5' 6) 04/08/2021 8:06 PM [employer] Body Mass Index - - Plan of [...] series ( season) 2024 01/21/2021, 12/31/2020 Influenza Vaccine (Season Ended) 2025 Pneumococcal series for age 6-49 Aged Out 01/31/2002, 2001, 2001 No longer eligible based on patient's age to complete this topic Procedures Procedure Name Priority Date/Time Associated Diagnosis Comments PATH TISSUE EXAM PLACENTA Routine 09/05/2024 3:47 PM CDT from Last 3 Months Results * PATH TISSUE EXAM PLACENTA (09/05/2024 3:47 PM CDT) Case Report Pathology Report Case: [id number] Authorizing Provider: Brie Richards MD Collected: 09/05/2024 [id number] Ordering Location: [facility] Received: 09/06/2024 1449 Pathologist: Jessica Lowery MD Specimen: Placenta 09/08/2024 2:44 PM CDT [facility] Final Diagnosis A) PLACENTA, VAGINAL DELIVERY: 1. Third trimester grijalva placenta with the following characteristics: a. Weight: 680 grams (39 week 10-90th percentile weight range, 426 - 611 grams) b. Membranes/ surface: Negative for chorioamnionitis c. Umbilical cord: Three vessel cord Negative for funisitis d. Disc/Villi: Chorionic villi consistent with gestational age Negative for villitis Placental disc with focal infarct (<5% of disc involved) e. Decidua/basal plate: No diagnostic abnormalities identified 09/08/2024 2:44 PM CDT [facility] at 1444 CDT Comment The patient's clinical history of hypertension is noted. Some histologic features that can be associated with maternal hypertensive disorders include decidual vasculopathy, infarcts, abruption, villous maldevelopment, and small placental size. 09/08/2024 2:44 PM CDT [facility] Clinical Information Maternal hypertension. G2, P1. 39-week vaginal delivery. Infant weight: 4685 g male born on 09/05/2023 at 15:47 09/08/2024 2:44 PM CDT [facility] Gross Description A) Received fresh labeled with the patient's name and date of , is a 680 gram, 24 x 22 x 3 cm grijalva placenta. The surface is blue-wills with normal vasculature. The 16.5 cm long, 1.0 cm diameter trivascular umbilical cord is eccentrically inserted 6.5 cm from the nearest edge of the placental plate. The umbilical cord averages 2 coils per 10 cm. The extraplacental membranes are cmnulty-pink, thick, semitranslucent and are marginally inserted. The maternal surface consists of red-purple, spongy, intact cotyledons that grossly appear to be 100% complete. Sectioning reveals a 1.2 x 1.0 x 1.0 cm pale yellow, friable, ill-defined parenchymal lesion, which makes up less than 5% of the total placental tissue. The remaining parenchyma consists of red-purple, spongy, homogenous tissue. [employer] Work sections are submitted: 1. membranes and insertion 2. Umbilical cord 3. Placental disc, full-thickness, umbilical cord insertion site 4-5. Central disc, full-thickness 6. Parenchymal lesion Time and date in formalin: 1914 on 09/06/2024 [place] 09/06/2024 09/08/2024 2:44 PM CDT [facility] Microscopic Description The final diagnosis is based on microscopic examination of appropriate sections of all specimens. 09/08/2024 2:44 PM CDT [facility] Additional Information Interpreted at [facility] - [address] [facility] [[email or web address] [address], [place] [address] 09/08/2024 2:44 PM CDT [facility] Tissue SPECIMEN FROM PLACENTA / Unknown 09/05/2024 3:47 PM CDT 09/06/2024 2:49 PM CDT Brie Richards MD PATHOLOGY/CYTOLOGY Final Result [facility] [address] [place] [address], [place] from Last 3 Months Insurance JOSEASHLEE WELLS [id number] Care Teams Avionics Mechanic Relationship Specialty Start Date End Date Pcp, No . PCP - General 11/22/23
--- NOTE | 2024-09-08 20:36 | ED.GENADULT ---
HPI - General Adult General Chief complaint: Post OB/Post- Complication Stated complaint: 3 days , high BP Time Seen by Provider: 09/08/24 20:36 History of Present Illness HPI narrative: Pt delivered here at [facility]. Pt states she was discharged yesterday from OB department. Pt c/o dizziness, swelling throughout extremities, headache, feeling out of it, and hypertension that started today. Pt took BP at home: 171 /113 at 1900 tonight and 185 /123 at 1910. Pt denies high blood pressure or complications with . . 24-year-old 3 days post her with concern of elevated blood pressure. Vaginal delivery 3 days ago. Was diagnosed with gestational hypertension. Discharged with nifedipine 30 mg twice daily. Did not get her repeat dose of nifedipine today due to problems with the pharmacy. Feeling a little bit ?out of it? check blood pressure noting 171/113 and subsequently little higher. Noticed swelling in her hands and feet. Had slight headache. Slight blurriness of vision. No significant abdominal pain. No shortness of breath. Admittedly this swelling is a little improved at this point. Related Data Home Medications ?Medication ?Instructions ?Recorded ?Confirmed acetaminophen 325 mg tablet (Pain 600 mg PO DAILY PRN 09/08/24 09/08/24 Relief (acetaminophen)) Previous Rx's ?Medication ?Instructions ?Recorded nifedipine 30 mg tablet,extended 30 mg PO Q12H #120 tabs 09/07/24 release Allergies Allergy/AdvReac Type Severity Reaction Status Date / Time No Known Drug Allergies Allergy Verified 09/08/24 20:32 Review of Systems Status of ROS: Reports: 6 or more systems reviewed and unremarkable except as noted in History and below [facility] Medical History Family history of colon cancer ?Z80.0 - Family history of malignant neoplasm of digestive organs (ICD-10) Family history of breast cancer ?Z80.3 - Family history of malignant neoplasm of breast (ICD-10) Social phobia ?F40.10 - Social phobia, unspecified (ICD-10) Vulvovaginal candidiasis ?B37.31 - Acute candidiasis of vulva and vagina (ICD-10) GERD (gastroesophageal reflux disease) ?K21.9 - Gastro-esophageal reflux disease without esophagitis (ICD-10) Constipation ?K59.00 - Constipation, unspecified (ICD-10) Generalized anxiety disorder ?F41.1 - Generalized anxiety disorder (ICD-10) Recurrent major depressive disorder ?F33.9 - Major depressive disorder, recurrent, unspecified (ICD-10) Spontaneous vaginal delivery (04/11/19) ?O80 - Encounter for full-term uncomplicated delivery (ICD-10) History of suicidal ideation ?Z86.59 - Personal history of other mental and behavioral disorders (ICD-10) History of self mutilation ?Z91.52 - Personal history of nonsuicidal self-harm (ICD-10) Dermatitis ?L30.9 - Dermatitis, unspecified (ICD-10) Acne ?L70.9 - Acne, unspecified (ICD-10) Surgical History [place] teeth removed ?K08.409 - Partial loss of teeth, unspecified cause, unspecified class (ICD-10) Family History Maternal Grandmother Breast cancer Paternal Grandmother Ovarian cancer Mother Diabetes Maternal Grandfather Colon cancer Paternal Grandfather Colon cancer Social History Narrative: 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 Marital status: Single. Uatsdin/cultural needs: no. Chemical or radiation exposure: no. Pre- tobacco use: Yes, occasional vaping. Pre- alcohol use: Occasional. Current tobacco use: no. Current alcohol use: no. Recreational drug use: no. Dietary restrictions: no. Blood transfusion acceptable in an emergency: yes. PSYCHOSOCIAL HISTORY: History of depression or currently depressed: Yes, history. Current or past physical, emotional, or sexual mistreatment: Denies. Problems that will make it hard to make it to appointments: Denies. What is your current living situation?: I presently have a place to live Problems where you live: no known problems In the past 12 months, utilities in danger of being shut off: no In past 12 months, lack of transportation kept you from medical appts, meetings, work, or getting things needed for daily living: no In the past 12 mos, have been you worried that your food would run out before you had money to buy more?: never true In the past 12 mos, the food you bought just didn't last and you didn't have money to buy more?: never true Highest level of school completed/degree received: high school graduate Physical activity type: walking Smoking Status: Former smoker Non-prescribed substance use: denies use How often does anyone, including family, friends and others, physically hurt you: never How often does anyone, including family, friends and others, insult or talk down to you: never How often does anyone, including family, friends and others, threaten you with harm: never How often does anyone, including family, friends and others, scream or curse at you: never Exam Narrative: Exam Narrative: Pleasant. NAD. Nerves 2 through 12 intact. Mentating normally. Lungs appear to be clear. Heart in regular rate and rhythm. Abdomen is soft without significant abdominal pain. One beat clonus. Well-perfused peripherally. Hands do appear little puffy above baseline judging by fit of her ring. Const: Vital Signs, click to edit/add: Vital Signs - 24 hr 09/08/24 20:24 09/08/24 20:33 09/08/24 20:34 Temperature 99.5 F Pulse Rate 101 H 95 Pulse Rate [Pulse Oximeter] 87 Respiratory Rate 18 Blood Pressure 152/94 H Blood Pressure [Ri ght Upper Arm] 154/97 H Pulse Oximetry 96 98 Oxygen Delivery Me thod Room Air 09/08/24 20:46 09/08/24 21:01 09/08/24 21:05 Temperature Pulse Rate 101 H 86 95 Pulse Rate [Pulse Oximeter] Respiratory Rate 25 H 18 14 Blood Pressure 135/93 H Blood Pressure [Ri ght Upper Arm] Pulse Oximetry 97 97 98 Oxygen Delivery Me thod 09/08/24 21:15 09/08/24 21:36 09/08/24 21:37 Temperature Pulse Rate 94 99 Pulse Rate [Pulse Oximeter] Respiratory Rate 5 L 5 L 20 Blood Pressure 160/93 H Blood Pressure [Ri ght Upper Arm] Pulse Oximetry 98 99 Oxygen Delivery Me thod 09/08/24 21:45 09/08/24 22:00 09/08/24 22:03 Temperature Pulse Rate 105 H 105 H 105 H Pulse Rate [Pulse Oximeter] Respiratory Rate 22 20 14 Blood Pressure 151/90 H Blood Pressure [Ri ght Upper Arm] Pulse Oximetry 99 97 97 Oxygen Delivery Me thod 09/08/24 22:04 Temperature Pulse Rate 105 H Pulse Rate [Pulse Oximeter] Respiratory Rate 21 Blood Pressure Blood Pressure [Ri ght Upper Arm] Pulse Oximetry 98 Oxygen Delivery Me thod Documenting provider has reviewed patient's vital signs: yes Course Vital Signs Vital signs: Initial Vital Signs Temperature 99.5 F 09/08/24 20:24 Temperature Source Temporal Artery Scan 09/08/24 20:24 Pulse Rate 87 09/08/24 20:24 Respiratory Rate 18 09/08/24 20:24 Blood Pressure 154/97 H 09/08/24 20:24 Blood Pressure Mean 116 H 09/08/24 20:24 Blood Pressure Position Sitting 09/08/24 20:24 Pulse Oximetry 96 09/08/24 20:24 Oxygen Delivery Method Room Air 09/08/24 20:24 Vital Signs Temperature 99.5 F 09/08/24 20:24 Pulse Rate 87 09/08/24 20:24 Respiratory Rate 18 09/08/24 20:24 Blood Pressure 154/97 H 09/08/24 20:24 Pulse Oximetry 96 09/08/24 20:24 Oxygen Delivery Method Room Air 09/08/24 20:24 Temperature 97.5 F L 09/09/24 07:22 Pulse Rate 85 09/09/24 07:22 Respiratory Rate 18 09/09/24 07:22 Blood Pressure 119/72 09/09/24 07:22 Pulse Oximetry 96 09/09/24 07:22 Oxygen Delivery Method Room Air 09/09/24 07:22 Medications Administered Medications: Generic Name Dose Route Start Last Admin Trade Name Freq PRN Reason Stop Dose Admin Magnesium Sulfate 40 gm in 1,000 mls @ 50 mls/hr 09/08/24 22:28 09/08/24 23:27 Magnesium Infusion IVPB 2 gm/hr .Q20H SANAZ 50 mls/hr Administration 2 GM/HR Lactated Ringer's 1,000 mls @ 75 mls/hr 09/08/24 22:55 09/08/24 22:55 Lactated Ringers 1000 Ml IV 75 mls/hr .[id number] SANAZ Administration Discontinued Medications Generic Name Dose Route Start Last Admin Trade Name Freq PRN Reason Stop Dose Admin Sodium Chloride 1,000 mls @ 1,000 mls/hr 09/08/24 20:49 09/08/24 22:30 0.9 % Sodium Chloride 1000 Ml IV 09/08/24 21:48 Infused .Q1H ONE Infusion Magnesium Sulfate 4 gm in 100 mls @ 200 mls/hr 09/08/24 22:28 09/08/24 23:30 Magnesium Iv IVPB 09/08/24 22:57 Infused ONCE ONE Infusion Nifedipine 30 mg 09/08/24 20:53 09/08/24 21:00 Nifedipine 10 Mg Capsule PO 09/08/24 20:54 30 mg ONCE ONE Administration Medical Decision Making MDM Narrative Medical decision making narrative: Certainly preeclampsia or HELLP is in differential. Collect standard labs and monitor pressures here. Subsequent blood pressure was improved but then climbs again. Given therapy dose. Transaminases are notably elevated. Elevated LDH. Does not appear to meet criteria for HELLP I discussed this case with OB. Will be going over to OB for further monitoring and cares. Medical Records Medical records reviewed: Yes I reviewed the patient's medical records Lab Data Lab results reviewed: Yes I reviewed the patient's lab results Labs: Lab Results 09/08/24 09/08/24 Range/Units 20:55 21:31 WBC 12.20 H (4.50-11.00) K/uL RBC 4.23 (4.00-5.20) m/uL Hgb 11.0 L (12.0-16.0) gm/dL Hct 34.5 (33.0-51.0) % MCV 82 (80-100) fL MCH 26 (26-34) pg MCHC 32 (32-36) gm/dL RDW Coeff of [place]ison 14.3 (11.5-15.5) % Plt Count 413 (140-440) K/uL Neut % (Auto) 69.7 (42.0-72.0) % Lymph % (Auto) 21.7 (20-44) % [place] % (Auto) 6.1 (0.0-11.0) % Eos % (Auto) 2.0 (0.0-7.0) % Baso % (Auto) 0.2 (0.0-3.0) % Neut # (Auto) 8.50 H (1.7-7.0) K/uL Lymph # (Auto) 2.60 (0.90-2.90) K/uL [place] # (Auto) 0.70 (0.00-0.90) K/UL Eos # (Auto) 0.20 (0.00-0.50) K/uL Baso # (Auto) 0.00 (0.00-0.30) K/uL Abs Immat Gran (auto) 0.00 (0.00-0.30) K/uL Imm/Tot Granulo (auto) 0.3 % Sodium 139 (135-149) mmol/L Potassium 3.8 (3.6-5.1) mmol/L Chloride 107 (96-114) mmol/L Carbon Dioxide 21 (20-32) mmol/L Anion Gap 11 (7-15) mEq/L BUN 10 (5-24) mg/dL Creatinine 0.7 (0.5-1.5) mg/dL Estimated Creat Clear 121.55 Estimated GFR 125 ml/min Glucose 79 (60-115) mg/dL Uric Acid 5.6 (2.2-8.4) mg/dL Calcium 9.5 (8.4-10.6) mg/dL Magnesium 2.0 (1.5-2.6) mg/dL Total Bilirubin 0.5 (0.1-1.5) mg/dL Direct Bilirubin 0.3 (0.0-0.5) mg/dL AST 88 H (12-35) U/L ALT 70 H (4-35) U/L Alkaline Phosphatase 166 H (40-150) U/L Lactate Dehydrogenase 337 H (120-246) U/L Total Protein 6.3 (6.0-8.3) g/dL Albumin 3.9 (3.3-5.0) g/dL Urine Color Yellow (Yellow) Urine Appearance Clear (Clear) Urine pH 7.0 (5.0-8.5) Ur Specific [place] 1.015 (1.000-1.030) Urine Protein 2+ A (Negative) Urine Glucose (UA) Negative (Negative) Urine Ketones Negative (Negative) Urine Blood 3+ A (Negative) Urine Nitrite Negative (Negative) Urine Bilirubin Negative (Negative) Urine Urobilinogen 0.2 (0.2-1.0) Ur Leukocyte Esterase 1+ A (Negative) Urine RBC 10-25 A (0-2) Urine WBC 5-10 A (0-5) Ur Squamous Epith Cells Few (None-Few) Urine Bacteria Few A (None) U Random Total Protein 108 mg/dL Discharge Plan Discharge Clinical Impression: Pre-eclampsia Patient Disposition: Admitted As Inpatient Condition: Stable
[2024-09-08] MEDS: NIFEdipine 10 MG CAPSULE 30 MG PO (21:00)
--- OUTSIDE RECORDS SUMMARY | 2024-09-08 21:02 | XMS_ITS | Clinical Summary ---
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 Gender Identity Not on file Sexual Orientation [...] 167.6 cm (5' 6) 04/08/2021 8:06 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 Some histologic features that can be associated with maternal hypertensive disorders include decidual vasculopathy, infarcts, abruption, villous maldevelopment, and small placental size. 09/08/2024 2:44 PM CDT [facility] Clinical Information Maternal hypertension. G2, P1. 39-week vaginal delivery. Infant weight: 4685 g male born on 09/05/2023 at 15:47 09/08/2024 2:44 PM CDT [facility] Gross Description A) Received [...] per 10 cm. The extraplacental membranes are mcnulty-pink, thick, semitranslucent and are marginally inserted. The maternal surface consists of red-purple, spongy, intact cotyledons that grossly appear to be 100% complete. Sectioning reveals a 1.2 x 1.0 x 1.0 cm pale yellow, friable, ill-defined parenchymal lesion, which makes up less than 5% of the total placental tissue. The remaining parenchyma consists of red-purple, spongy, homogenous tissue. Aviation Manager sections are submitted: 1. membranes and insertion 2. Umbilical cord 3. Placental disc, full-thickness, umbilical cord insertion site 4-5. Central disc, full-thickness 6. Parenchymal lesion Time and date in formalin: 1914 on 09/06/2024 [place] 09/06/2024 09/08/2024 2:44 PM CDT [facility] LABORATORY-C ENTRAL LABORATORY Microscopic Description The final diagnosis is based on microscopic examination of appropriate sections of all specimens. 09/08/2024 2:44 PM CDT [facility]OR[facility]- ENTRAL LABORATORY Additional Information Interpreted at [facility] - [address] [facility] [address], [place] [address] 09/08/2024 2:44 PM CDT [facility] Tissue SPECIMEN FROM PLACENTA / Unknown 09/05/2024 3:47 PM CDT 09/06/2024 2:49 PM CDT Brie Richards MD PATHOLOGY/CYTOLOGY Final Result [facility] [address] [place] [address], [place] from Last 3 Months Insurance JOSEASHLEE WELLS [id number] Care Teams Load[employer] Dies Relationship Specialty Start Date End Date Pcp, No . PCP - General 11/22/23
[2024-09-08 21:06] LABS: Basophils Percent Auto 0.2 % (0.0-3.0); Hematocrit 34.5 % (33.0-51.0); Immature Granulocytes Pct Auto 0.3 %; Lymphocytes Percent Auto 21.7 % (20-44); Mean Corpuscular HGB Conc 32 gm/dL (32-36); Mean Corpuscular Hemoglobin 26 pg (26-34); Mean Corpuscular Volume 82 fL (80-100); Monocytes Percent Auto 6.1 % (0.0-11.0); Neutrophils Percent Auto 69.7 % (42.0-72.0); Platelet Count* 413 K/uL (140-440); RDW Coefficient of Variation % 14.3 % (11.5-15.5); Red Blood Count 4.23 m/uL (4.00-5.20)
[2024-09-08 21:15] LABS: Slide Review Reflex No
[2024-09-08 21:37] LABS: Albumin* 3.9 g/dL (3.3-5.0); Chloride* 107 mmol/L (96-114); Potassium* 3.8 mmol/L (3.6-5.1); Sodium* 139 mmol/L (135-149)
[2024-09-08 21:39] LABS: Alanine Aminotransferase* 70 U/L (4-35); Anion Gap 11 mEq/L (7-15); Aspartate Amino Transferase* 88 U/L (12-35); Blood Urea Nitrogen* 10 mg/dL (5-24); Carbon Dioxide* 21 mmol/L (20-32); Creatinine* 0.7 mg/dL (0.5-1.5); Est. Creatinine Clearance* 121.55; Estimated Glomerular Filt Rate 125 ml/min
[2024-09-08 21:40] LABS: Appearance Urine Clear (Clear); Bilirubin Urine Negative (Negative); Blood Urine 3+ (Negative); Color Urine Yellow (Yellow); Glucose Urine Negative (Negative); Ketones Urine Negative (Negative); Leukocyte Esterase Urine 1+ (Negative); Nitrite Urine Negative (Negative); Protein Urine 2+ (Negative); Specific Gravity Urine 1.015 (1.000-1.030); Urobilinogen Urine 0.2 (0.2-1.0)
[2024-09-08 21:40] LABS: Alkaline Phosphatase* 166 U/L (40-150); Bilirubin Direct* 0.3 mg/dL (0.0-0.5); Bilirubin Total* 0.5 mg/dL (0.1-1.5); Calcium* 9.5 mg/dL (8.4-10.6); Glucose* 79 mg/dL (60-115); Lactate Dehydrogenase* 337 U/L (120-246); Total Protein* 6.3 g/dL (6.0-8.3); Uric Acid* 5.6 mg/dL (2.2-8.4)
[2024-09-08] MEDS: 0.9 % SODIUM CHLORIDE 1000 ml 1,000 ML IV (21:45)
[2024-09-08 22:05] LABS: Bacteria Urine Few; Squamous Epithelial Cell Urine Few (None-Few)
--- NOTE | 2024-09-08 22:15 | P.OBCN_ITS ---
OB - CN: HPI Date of Consult Date Seen: 09/08/24 Consult date: 09/08/24 Requesting Physician: Megan Read MD Primary Care Provider: Jones Arnett MD Consult Narrative Reason for consult: gestational hypertension Narrative: The patient is a 24 year old G 2 P 2001 on PPD 3 who presents for re evaluation due to severely elevated blood pressures at home. Patient was admitted for IOL on 09/04/24 due to recent diagnosis of GHTN (mild range elevated blood pressures more than 4 hours apart). Delivery complicated by shoulder dystocia, patient with mild range elevated blood pressures and started on oral nifedipine 30mg daily. No significant lab work abnormalities at that time. Patient was discharged home on 09/07/24 and planned a follow up BP check clinic appointment on 09/11/24. Tonight patient called labor and delivery with concerns of BP reading at home of systolic in the 170s. Patient instructed to present to ED for evaluation. At ED BP found mild range elevated, but liver enzymes doubled consistent with severe symptoms. Patient aliyah states that she has noted blurry vision since yesterday, but denies headaches, pain in the upper abdomen. History History 2 Elective abortions Para 2 Spontaneous abortions Hx # Term Pregnancies 1 Ectopic pregnancies Hx # Pregnancies Multiple births Number of Living Children 1 Past Pregnancies Del. Date GA/Weeks Outcome Route wt Inf Gender Labor Lgth Anesthesia Location Provider Compli 04/11/19 38 live - full term vaginal delivery 3.969 kg Male 15hrs epidural [facility] Medical History (Updated 09/08/24 @ 22:43 by Megan Read MD) Family history of colon cancer ?Z80.0 - Family history of malignant neoplasm of digestive organs (ICD-10) Family history of breast cancer ?Z80.3 - Family history of malignant neoplasm of breast (ICD-10) Social phobia ?F40.10 - Social phobia, unspecified (ICD-10) Vulvovaginal candidiasis ?B37.31 - Acute candidiasis of vulva and vagina (ICD-10) GERD (gastroesophageal reflux disease) ?K21.9 - Gastro-esophageal reflux disease without esophagitis (ICD-10) Constipation ?K59.00 - Constipation, unspecified (ICD-10) Generalized anxiety disorder ?F41.1 - Generalized anxiety disorder (ICD-10) Recurrent major depressive disorder ?F33.9 - Major depressive disorder, recurrent, unspecified (ICD-10) Spontaneous vaginal delivery (04/11/19) ?O80 - Encounter for full-term uncomplicated delivery (ICD-10) History of suicidal ideation ?Z86.59 - Personal history of other mental and behavioral disorders (ICD-10) History of self mutilation ?Z91.52 - Personal history of nonsuicidal self-harm (ICD-10) Dermatitis ?L30.9 - Dermatitis, unspecified (ICD-10) Acne ?L70.9 - Acne, unspecified (ICD-10) Surgical History [place] teeth removed ?K08.409 - Partial loss of teeth, unspecified cause, unspecified class (ICD- 10) Family History Maternal Grandmother Breast cancer Paternal Grandmother Ovarian cancer Mother Diabetes Maternal Grandfather Colon cancer Paternal Grandfather Colon cancer Social History Narrative: Occupation: Works on a [employer] shop. Marital status: Single. Latter Day/cultural needs: no. Chemical or radiation exposure: no. Pre- tobacco use: Yes, occasional vaping. Pre- alcohol use: Occasional. Current tobacco use: no. Current alcohol use: no. Recreational drug use: no. Dietary restrictions: no. Blood transfusion acceptable in an emergency: yes. PSYCHOSOCIAL HISTORY: History of depression or currently depressed: Yes, history. Current or past physical, emotional, or sexual mistreatment: Denies. Problems that will make it hard to make it to appointments: Denies. What is your current living situation?: I presently have a place to live Problems where you live: no known problems In the past 12 months, utilities in danger of being shut off: no In past 12 months, lack of transportation kept you from medical appts, meetings, work, or getting things needed for daily living: no In the past 12 mos, have been you worried that your food would run out before you had money to buy more?: never true In the past 12 mos, the food you bought just didn't last and you didn't have money to buy more?: never true Highest level of school completed/degree received: high school graduate Physical activity type: walking Smoking Status: Never smoker Non-prescribed substance use: denies use How often does anyone, including family, friends and others, physically hurt you : never How often does anyone, including family, friends and others, insult or talk down to you: never How often does anyone, including family, friends and others, threaten you with harm: never How often does anyone, including family, friends and others, scream or curse at you: never Meds Home Medications and Allergies Home Medications ?Medication ?Instructions ?Recorded ?Confirmed ?Type acetaminophen 325 mg tablet (Pain 600 mg PO DAILY PRN 09/08/24 09/08/24 History Relief (acetaminophen)) Allergies Allergy/AdvReac Type Severity Reaction Status Date / Time No Known Drug Allergies Allergy Verified 09/08/24 20:32 OB - H&P: Exam Physical Exam: Vital signs: Temp Pulse Resp BP Pulse Ox O2 Del Method 99.5 F 105 H 14 151/90 H 97 Room Air 09/08/24 20:24 09/08/24 22:03 09/08/24 22:03 09/08/24 22:03 09/08/24 22:03 09/08/24 20:24 Narrative: VITAL SIGNS: As noted above. GENERAL APPEARANCE: Alert, cooperative female in no acute distress. MOOD & AFFECT: Normal. HEART: Regular rate and rhythm without murmurs. LUNGS: Lungs are clear to auscultation bilaterally. No crackles, wheezes, or rhonchi. ABDOMEN: Soft, non-distended and nontender. Well contracted. : Normal pp lochia. EXTREMITIES: Nonedematous. Well perfused. Nontender. NEURO: Intact. OB - Results Labs Labs: Short CBC 09/08/24 Range/Units 20:55 WBC 12.20 H (4.50-11.00) K/uL Hgb 11.0 L (12.0-16.0) gm/dL Hct 34.5 (33.0-51.0) % Plt Count 413 (140-440) K/uL BMP 09/08/24 20:55 Sodium 139 Potassium 3.8 Chloride 107 Carbon Dioxide 21 BUN 10 Creatinine 0.7 Glucose 79 Calcium 9.5 Liver Function 04/11/25 Range/Units 20:55 Total Bilirubin 0.5 (0.1-1.5) mg/dL Direct Bilirubin 0.3 (0.0-0.5) mg/dL AST 88 H (12-35) U/L ALT 70 H (4-35) U/L Alkaline Phosphatase 166 H (40-150) U/L Albumin 3.9 (3.3-5.0) g/dL Urine 09/08/24 Range/Units 21:31 Urine Color Yellow (Yellow) Urine Appearance Clear (Clear) Urine pH 7.0 (5.0-8.5) Ur Specific [place] 1.015 (1.000-1.030) Urine Protein 2+ A (Negative) Urine Glucose (UA) Negative (Negative) OB - CN: A/P Assessment and Plan (1) Gestational hypertension: Problem details: With severe features-transaminitis on PPD3 Status: Acute Plan Gestational hypertension with severe features on day 3. Recommend admission and start of Magnesium sulfate infusion for 24 hours for seizure prophylaxis. Continued observation for another 24 hours after completion of magnesium for BP monitoring. Will plan to complete labs q6 hours while magnesium infusion is ongoing. Will increase Nifedipine to 30mg BID. 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 Patient in agreement with plan.
[2024-09-08] MEDS: MAGNESIUM IV 4 GM/100 ML PIGGYBACK IVPB (22:52)
[2024-09-08] MEDS: LACTATED RINGERS 1000 ML 1,000 ML 75 ML IV (22:55)
[2024-09-08] MEDS: MAGNESIUM Infusion 40 GM/1,000 ML IV.SOLN IVPB (23:27)
[2024-09-09] VITALS (18 sets, daily range): BP systolic 106–138; BP diastolic 63–81; PULSE 72–100; RESP 14–18; TEMP 36.3–37.1; O2SAT 95–98
[2024-09-09 00:41] LABS: Total Protein Urine Random* 108 mg/dL
[2024-09-09 04:32] LABS: Hematocrit 31.7 % (33.0-51.0); Mean Corpuscular HGB Conc 32 gm/dL (32-36); Mean Corpuscular Hemoglobin 26 pg (26-34); Mean Corpuscular Volume 82 fL (80-100); Platelet Count* 413 K/uL (140-440); Red Blood Count 3.85 m/uL (4.00-5.20); White Blood Count* 11.53 K/uL (4.50-11.00)
[2024-09-09 04:54] LABS: Slide Review Reflex No
[2024-09-09 05:06] LABS: Alanine Aminotransferase* 62 U/L (4-35); Aspartate Amino Transferase* 82 U/L (12-35); Blood Urea Nitrogen* 7 mg/dL (5-24); Creatinine* 0.7 mg/dL (0.5-1.5); Est. Creatinine Clearance* 121.55; Estimated Glomerular Filt Rate 125 ml/min
[2024-09-09 05:14] LABS: Magnesium* 4.4 mg/dL (1.5-2.6)
[2024-09-09] MEDS: NIFEdipine ER 30 MG TAB PO ×2 (09:01→20:42)
[2024-09-09 10:52] LABS: Alanine Aminotransferase* 68 U/L (4-35); Aspartate Amino Transferase* 75 U/L (12-35); Blood Urea Nitrogen* 6 mg/dL (5-24); Creatinine* 0.7 mg/dL (0.5-1.5); Est. Creatinine Clearance* 121.55; Estimated Glomerular Filt Rate 125 ml/min
[2024-09-09 10:53] LABS: Magnesium* 5.1 mg/dL (1.5-2.6)
[2024-09-09] MEDS: LACTATED RINGERS 1000 ML 1,000 ML 75 ML IV (12:01)
--- NOTE | 2024-09-09 12:04 | PM.OBPNVD1 ---
OB - PN:Subj Subjective Time Seen by Provider: 12:05 Date Seen: 09/09/24 Narrative: Linda is a 24yo seen on hospital day 2 from readmission for preE with SF. was complicated by IOL on 09/04/24 due to recent diagnosis of GHTN where she was discharged on nifedipine XL 30mg daily. She returned to the ED on 09/08, where she was noted to have a blood pressure exacerbation in new severe features by transaminitis. Patient was initiated on magnesium sulfate and her eye antihypertensive regimen was increased to nifedipine XL 30 mg b.i.d.. Patient notes she is feeling pretty well today. She does feel a bit groggy on magnesium. Denies headache, vision changes or right upper quadrant pain. No chest pain or shortness of breath. Blood pressure control has been excellent on nifedipine 30 mg XL b.i.d. She has no other concerns such as heavy vaginal bleeding or pain. OB - PN: Obj Exam Physical Exam: Vital signs: Temp Pulse Resp BP Pulse Ox O2 Del Method 97.4 F L 95 16 122/73 98 Room Air 09/09/24 09:03 09/09/24 11:19 09/09/24 11:19 09/09/24 11:19 09/09/24 11:19 09/09/24 11:19 Narrative: General: Alert and oriented, no acute distress Psych: Appropriate mood and affect Heart: Regular rate and rhythm, no rubs murmurs or gallops Lungs: Clear to auscultation throughout Vital signs reviewed and are within normal limits. Serial labs have been trended, with interval improvement noted in her transaminitis. OB - PN: Obj Data Labs Labs: Laboratory Results - last 24 hr 09/08/24 09/08/24 09/09/24 20:55 21:31 04:18 WBC 12.20 H 11.53 H RBC 4.23 3.85 L Hgb 11.0 L 10.0 L Hct 34.5 31.7 L MCV 82 82 MCH 26 26 MCHC 32 32 RDW Coeff of Alison 14.3 Plt Count 413 413 Neut % (Auto) 69.7 Lymph % (Auto) 21.7 [place] % (Auto) 6.1 Eos % (Auto) 2.0 Baso % (Auto) 0.2 Neut # (Auto) 8.50 H Lymph # (Auto) 2.60 [place] # (Auto) 0.70 Eos # (Auto) 0.20 Baso # (Auto) 0.00 Abs Immat Gran (auto) 0.00 Imm/Tot Granulo (auto) 0.3 Sodium 139 Potassium 3.8 Chloride 107 Carbon Dioxide 21 Anion Gap 11 BUN 10 7 Creatinine 0.7 0.7 Estimated Creat Clear 121.55 121.55 Estimated GFR 125 125 Glucose 79 Uric Acid 5.6 Calcium 9.5 Magnesium 2.0 4.4 H* Total Bilirubin 0.5 Direct Bilirubin 0.3 AST 88 H 82 H ALT 70 H 62 H Alkaline Phosphatase 166 H Lactate Dehydrogenase 337 H Total Protein 6.3 Albumin 3.9 Urine Color Yellow Urine Appearance Clear Urine pH 7.0 Ur Specific [place] 1.015 Urine Protein 2+ A Urine Glucose (UA) Negative Urine Ketones Negative Urine Blood 3+ A Urine Nitrite Negative Urine Bilirubin Negative Urine Urobilinogen 0.2 Ur Leukocyte Esterase 1+ A Urine RBC 10-25 A Urine WBC 5-10 A Ur Squamous Epith Cells Few Urine Bacteria Few A U Random Total Protein 108 09/09/24 10:25 WBC RBC Hgb Hct MCV MCH MCHC RDW Coeff of Alison Plt Count Neut % (Auto) Lymph % (Auto) [place] % (Auto) Eos % (Auto) Baso % (Auto) Neut # (Auto) Lymph # (Auto) [place] # (Auto) Eos # (Auto) Baso # (Auto) Abs Immat Gran (auto) Imm/Tot Granulo (auto) Sodium Potassium Chloride Carbon Dioxide Anion Gap BUN 6 Creatinine 0.7 Estimated Creat Clear 121.55 Estimated GFR 125 Glucose Uric Acid Calcium Magnesium 5.1 H* Total Bilirubin Direct Bilirubin AST 75 H ALT 68 H Alkaline Phosphatase Lactate Dehydrogenase Total Protein Albumin Urine Color Urine Appearance Urine pH Ur Specific [place] Urine Protein Urine Glucose (UA) Urine Ketones Urine Blood Urine Nitrite Urine Bilirubin Urine Urobilinogen Ur Leukocyte Esterase Urine RBC Urine WBC Ur Squamous Epith Cells Urine Bacteria U Random Total Protein OB - PN: A/P Delivery Assessment and Plan (1) Pre-eclampsia: Status: Acute (2) (normal spontaneous vaginal delivery): Status: Acute (3) care and examination of lactating mother: Status: Acute Plan Ms. Monique is a 24yo seen on hospital day 2 after readmission for preE with SF (transaminitis). - Magnesium sulfate ongoing, ends at 2300 this evening - BP control is excellent, on a regimen of Nifedipine XL 30mg BID. Continue to monitor and adjust as needed. - Adequate UOP of 1550mL since admission - Serial HELLP labs Q6H while on magnesium, then PRN - No routine PP concerns Dispo: Inpatient, likely dismissal to home AM of 09/11 Plan Plan: routine care
[2024-09-09 15:53] LABS: Hematocrit 33.2 % (33.0-51.0); Hemoglobin* 10.4 gm/dL (12.0-16.0); Mean Corpuscular HGB Conc 31 gm/dL (32-36); Mean Corpuscular Hemoglobin 26 pg (26-34); Mean Corpuscular Volume 83 fL (80-100); Platelet Count* 429 K/uL (140-440); Red Blood Count 3.99 m/uL (4.00-5.20); White Blood Count* 11.11 K/uL (4.50-11.00)
[2024-09-09 15:54] LABS: Slide Review Reflex No
[2024-09-09 16:16] LABS: Hematocrit 31.9 % (33.0-51.0); Hemoglobin* 10.2 gm/dL (12.0-16.0); Mean Corpuscular HGB Conc 32 gm/dL (32-36); Mean Corpuscular Hemoglobin 26 pg (26-34); Mean Corpuscular Volume 82 fL (80-100); Platelet Count* 411 K/uL (140-440); Red Blood Count 3.91 m/uL (4.00-5.20); White Blood Count* 9.66 K/uL (4.50-11.00)
[2024-09-09 16:29] LABS: Slide Review Reflex No
[2024-09-09 16:30] LABS: Alanine Aminotransferase* 68 U/L (4-35); Aspartate Amino Transferase* 68 U/L (12-35); Blood Urea Nitrogen* 6 mg/dL (5-24); Creatinine* 0.6 mg/dL (0.5-1.5); Est. Creatinine Clearance* 141.81; Estimated Glomerular Filt Rate 129 ml/min
[2024-09-09 16:32] LABS: Magnesium* 5.4 mg/dL (1.5-2.6)
[2024-09-09] MEDS: MAGNESIUM Infusion 40 GM/1,000 ML IV.SOLN IVPB (19:11)
[2024-09-09 22:31] LABS: Hematocrit 34.8 % (33.0-51.0); Mean Corpuscular HGB Conc 32 gm/dL (32-36); Mean Corpuscular Hemoglobin 26 pg (26-34); Mean Corpuscular Volume 82 fL (80-100); Platelet Count* 461 K/uL (140-440); Red Blood Count 4.25 m/uL (4.00-5.20)
[2024-09-09 22:43] LABS: Slide Review Reflex No
[2024-09-09 22:44] LABS: Alanine Aminotransferase* 75 U/L (4-35); Aspartate Amino Transferase* 64 U/L (12-35); Blood Urea Nitrogen* 7 mg/dL (5-24); Creatinine* 0.6 mg/dL (0.5-1.5); Est. Creatinine Clearance* 141.81; Estimated Glomerular Filt Rate 129 ml/min
[2024-09-09 22:53] LABS: Magnesium* 5.4 mg/dL (1.5-2.6)
[2024-09-10] VITALS (9 sets, daily range): BP systolic 126–152; BP diastolic 66–95; PULSE 78–105; RESP 16; TEMP 36.6–37.1; O2SAT 96–99
--- NOTE | 2024-09-10 08:16 | PM.OBPNVD1 ---
OB - PN:Subj Subjective Time Seen by Provider: 08:16 Date Seen: 09/10/24 Narrative: Linda is a 24yo seen on hospital day 3 from readmission for preE with SF. was complicated by IOL on 09/04/24 due to recent diagnosis of GHTN where she was discharged on nifedipine XL 30mg daily. She returned to the ED on 09/08, where she was noted to have a blood pressure exacerbation in new severe features by transaminitis. Patient was initiated on magnesium sulfate and her eye antihypertensive regimen was increased to nifedipine XL 30 mg b.i.d.. Her magnesium was discontinued at 2300 yesterday. She notes feeling less flushed and like her thoughts are clearer off this, still feels a bit groggy. Denies headache, vision changes or RUQ pain. No chest pain or shortness of breath. Blood pressure control has been excellent on nifedipine 30 mg XL b.i.d. She has no other concerns such as heavy vaginal bleeding or pain. OB - PN: Obj Exam Physical Exam: Vital signs: Temp Pulse Resp BP Pulse Ox O2 Del Method 97.9 F 81 16 131/82 96 Room Air 09/10/24 07:58 09/10/24 07:58 09/10/24 07:58 09/10/24 07:58 09/10/24 07:58 09/10/24 07:58 Narrative: General: Alert and oriented, no acute distress Psych: Appropriate mood and affect Heart: Regular rate and rhythm, no rubs murmurs or gallops Lungs: Clear to auscultation throughout OB - PN: Obj Data Labs Labs: Laboratory Results - last 24 hr 09/09/24 09/09/24 09/09/24 10:25 16:11 22:25 WBC 11.11 H 9.66 10.70 RBC 3.99 L 3.91 L 4.25 Hgb 10.4 L 10.2 L 11.0 L Hct 33.2 31.9 L 34.8 MCV 83 82 82 MCH 26 26 26 MCHC 31 L 32 32 Plt Count 429 411 461 H BUN 6 6 7 Creatinine 0.7 0.6 0.6 Estimated Creat Clear 121.55 141.81 141.81 Estimated GFR 125 129 129 Magnesium 5.1 H* 5.4 H* 5.4 H* AST 75 H 68 H 64 H ALT 68 H 68 H 75 H OB - PN: A/P Delivery Assessment and Plan (1) Pre-eclampsia: Status: Acute (2) (normal spontaneous vaginal delivery): Status: Acute (3) care and examination of lactating mother: Status: Acute Plan Ms. Monique is a 24yo seen on hospital day 3 after readmission for preE with SF (transaminitis, BP elevation). She is s/p on 09/05 following IOL for gHTN. - She completed 24 hours of magnesium at 2300 on 09/09 - Denies headache, vision changes and RUQ pain. No signs specific for [employer]PERATOR irritability, patient does feel a bit groggy still question magnesium wearing off effect vs sleep deprivation. No focal neurologic deficits. - BP control is good, on a regimen of Nifedipine XL 30mg BID. She had a single mild range BP in the last 24 hours. Continue to monitor and adjust as needed. - Adequate UOP of 1500mL documented in the last 24 hours - Q6H HELLP labs were trended while on magnesium, AST has improved from peak of 88 to 64 at last set. ALT has demonstrated interval increase, however, at 75 this morning (70>62>68>68 throughout hospitalization). Recommend repeat set of HELLP labs today, about 12 hours from last set. Hopeful to see improvement in her ALT as all other clinical parameters are suggesting improvement of her HTN state. - No routine PP concerns Dispo: Inpatient, likely dismissal to home AM of 09/11
[2024-09-10] MEDS: NIFEdipine ER 30 MG TAB PO ×3 (08:59→21:54)
[2024-09-10 09:30] LABS: Alanine Aminotransferase* 58 U/L (4-35); Aspartate Amino Transferase* 41 U/L (12-35); Blood Urea Nitrogen* 9 mg/dL (5-24); Creatinine* 0.6 mg/dL (0.5-1.5); Est. Creatinine Clearance* 141.81; Estimated Glomerular Filt Rate 129 ml/min
[2024-09-10 13:31] LABS: Hematocrit 31.7 % (33.0-51.0); Hemoglobin* 9.9 gm/dL (12.0-16.0); Mean Corpuscular HGB Conc 31 gm/dL (32-36); Mean Corpuscular Hemoglobin 26 pg (26-34); Mean Corpuscular Volume 84 fL (80-100); Platelet Count* 446 K/uL (140-440); Red Blood Count 3.79 m/uL (4.00-5.20); White Blood Count* 9.66 K/uL (4.50-11.00)
[2024-09-10 13:34] LABS: Slide Review Reflex No
--- NOTE | 2024-09-10 19:52 | P.DS_ITS ---
DS: Providers Provider Date Seen: 09/10/24 Date of admission: 09/08/24 22:11 Primary care physician: Jones Arnett MD Admitting Clinician: Megan Read MD Attending Physician on discharge: Megan Read MD Exam Narrative: Exam Narrative: See exam from rounding note this AM. Repeat exam not performed. Const: Vital Signs, click to edit/add: Vital Signs - 24 hr 09/09/24 23:00 09/10/24 03:21 09/10/24 03:36 Temperature 98.1 F Pulse Rate [Pulse Oximeter] 96 87 Respiratory Rate 16 16 Blood Pressure [Le ft Arm] 132/79 141/84 H 128/79 Pulse Oximetry 97 97 Oxygen Delivery Me thod Room Air Room Air 09/10/24 07:58 09/10/24 12:06 09/10/24 16:52 Temperature 97.9 F 98.4 F 98.7 F Pulse Rate [Pulse Oximeter] 81 105 H 104 H Respiratory Rate 16 16 16 Blood Pressure [Le ft Arm] 131/82 138/82 142/89 H Pulse Oximetry 96 98 99 Oxygen Delivery Me thod Room Air Room Air Room Air 09/10/24 17:15 Temperature Pulse Rate [Pulse Oximeter] Respiratory Rate Blood Pressure [Le ft Arm] 126/85 Pulse Oximetry Oxygen Delivery Me thod OB - DS: Summary Hospital Course Hospital Course: Linda is a 24yo seen on hospital day 3 from readmission for preE with SF. was complicated by IOL on 09/04/24 due to recent diagnosis of GHTN where she was discharged on nifedipine XL 30mg daily. She returned to the ED on 09/08, where she was noted to have a blood pressure exacerbation in new severe features by transaminitis. Patient was initiated on magnesium sulfate (2/p 24 hours as of 09/09 at 2300) and antihypertensive regimen was increased to nifedipine XL 30 mg b.i.d.. At time of rounding this morning, she was agreeable to staying overnight to remain inpatient at least 24 hours s/p mag course. She did note some difficulty with childcare to be coordinated. She is now requesting early dismissal due to difficulty with childcare. She has remained normotensive today, aside from one mild range BP that was normal on recheck. Feeling well - no headache, vision changes of RUQ pain. Late morning labs noted interval improvement in transaminitis. Plan to dismiss to home this evening, around 2100. She will get her PM nifedipine prior to leaving, has 30mg tablets at home to continue BID. She was previously scheduled for a BP check in clinic tomorrow, encouraged her to keep this given early dismissal tonight. She expressed understanding and is in agreement. Time Spent with Patient Time attestation: Total time spent providing and/or coordinating discharge services: Time spent: Less than 30 minutes Discharge Plan Discharge Disposition: Home, Self-Care Date of Admission: 09/08/24 22:11 Primary Care Provider: Jones Arnett Condition: Stable Anticipated Discharge Date/Time: 09/10/24 21:00 Discharge Medications: Continued nifedipine 30 mg Tablet Extended Release 30 mg PO Q12H Qty: 120 0RF acetaminophen [Pain Relief (acetaminophen)] 325 mg tablet 600 mg PO DAILY PRN Discharge Orders: Discharge Order (Routine); Ordered 09/10/24 Ordered By: Mercedes Crews Additional Instructions: Discharge instructions were reviewed with the patient including signs and symptoms of infection and home going medications Nothing vaginally for 6 weeks: no tampons or intercourse Do not drive while taking narcotic pain medication(s) Off Work or School for 8 weeks Symptoms to report to doctor: * Bleeding that saturates more than one pad per hour * Passing clots larger than the size of a golf ball * Pain not relieved by prescribed medication * Fever above 100.4 degrees Fahrenheit * A foul vaginal odor * Difficulty in emotions, mood, and functions * Thoughts of hurting yourself and/or * Painful, reddened area in your breast * Any drainage, redness, or tenderness in your IV/epidural site * Severe headache that doesn't improve after taking medications * Changes in vision, including temporary loss of vision, blurred vision, and/or light sensitivity * Upper abdominal pain (usually under ribs on the right side) * Decrease in urination or painful, frequent urinating * Chest pain * Shortness of breath * Tenderness or pain with redness and/swelling in the calf(s) of your leg [facility] for a BP check - Tomorrow as previously scheduled Call with BP greater than or equal to 160/110 2-week visit: discuss feeding concerns, review control options and screen for anxiety/depression. 6-week visit for an annual exam. consultation services are available to all mothers and babies for the first year after delivery.? To make an appointment, please call [phone]. Follow Up Appointments: Jones Arnett MD [Primary Care Provider] - Forms: [employer] Info Instructions
[2024-09-11 00:10] VITALS: BP 130/83; PULSE 102; RESP 18; TEMP 37.1; O2SAT 98
[2024-09-11] MEDS: ACETAMINOPHEN 500 MG TABLET 1000 MG PO (02:48)
[2024-09-11 02:50] VITALS: BP 130/84; PULSE 93; RESP 16; O2SAT 97
[2024-09-11 07:46] VITALS: BP 131/83; PULSE 87; RESP 16; TEMP 36.9; O2SAT 98
--- NOTE | 2024-09-11 08:29 | P.DS_ITS ---
DS: Providers Provider Date Seen: 09/11/24 Date of admission: 09/08/24 22:11 Primary care physician: Jones Arnett MD Admitting Clinician: Megan Read MD Attending Physician on discharge: Megan Read MD Date of Discharge: 09/11/24 Exam Narrative: Exam Narrative: Physical exam: General:No acute distress Psych: Alert and oriented x4, full affect HEENT: Normocephalic, atraumatic Neck: No cervical adenopathy, no thyromegaly Heart: Regular rate and rhythm, no murmur rub or gallop Lungs: Clear to auscultation bilaterally Abdomen: Normoactive bowel sounds, soft, no tenderness, rebound, or guarding Skin: No lesions or rashes Lower extremities: No edema or erythema Pelvic exam: Deferred. Const: Vital Signs, click to edit/add: Vital Signs - 24 hr 09/10/24 12:06 09/10/24 16:52 09/10/24 17:15 Temperature 98.4 F 98.7 F Pulse Rate [Pulse Oximeter] 105 H 104 H Respiratory Rate 16 16 Blood Pressure [Le ft Arm] 138/82 142/89 H 126/85 Pulse Oximetry 98 99 Oxygen Delivery Me thod Room Air Room Air 09/10/24 20:09 09/10/24 21:05 09/10/24 21:20 Temperature Pulse Rate [Pulse Oximeter] 78 Respiratory Rate 16 Blood Pressure [Le ft Arm] 142/91 H 152/95 H 137/66 Pulse Oximetry Oxygen Delivery Me thod 09/11/24 00:10 09/11/24 02:50 09/11/24 07:46 Temperature 98.8 F 98.4 F Pulse Rate [Pulse Oximeter] 102 H 93 87 Respiratory Rate 18 16 16 Blood Pressure [Le ft Arm] 130/83 130/84 131/83 Pulse Oximetry 98 97 98 Oxygen Delivery Me thod Room Air Room Air Room Air OB - DS: Summary Hospital Course Hospital Course: Linda is a 24yo seen on hospital day 4 from readmission for preE with SF. was complicated by IOL on 09/04/24 due to recent diagnosis of GHTN where she was discharged on nifedipine XL 30mg daily. She returned to the ED on 09/08, where she was noted to have a blood pressure exacerbation and transaminitis - 2x the upper limit of normal. Patient was initiated on magnesium sulfate (s/p 24 hours as of 09/09 at 2300). Plan was and antihypertensive regimen was increased to nifedipine XL 30 mg QA and 60 mg QPM. BP within normal limits overnight. Denies any persistent headache, vision changes, SOB, right upper quadrant/epigastric pain, or rapidly expanding edema. Can cancel her BP check this AM in clinic. Discussed with patient to do her BP check and 2 week appointment on WednesdaySeptember 15. In the mean time, discussed BP and symptom monitoring. Time Spent with Patient Time attestation: Total time spent providing and/or coordinating discharge services: Discharge Plan Discharge Disposition: Home, Self-Care Date of Admission: 09/08/24 22:11 Attending Provider on Discharge: Nataliia Chavez Primary Care Provider: Jones Arnett Condition: Stable Anticipated Discharge Date/Time: 09/11/24 09:00 Discharge Medications: New nifedipine 30 mg Tablet Extended Release 60 mg PO QPM 30 Days Qty: 60 0RF Continued nifedipine 30 mg Tablet Extended Release 30 mg PO Q12H Qty: 120 0RF acetaminophen [Pain Relief (acetaminophen)] 325 mg tablet 600 mg PO DAILY PRN Discharge Orders: Discharge Order (Routine); Ordered 09/11/24 Ordered By: Nataliia Chavez Patient Education: OB High Blood Pressure DC Additional Instructions: Discharge instructions were reviewed with the patient including signs and symptoms of infection and home going medications Nothing vaginally for 6 weeks: no tampons or intercourse Do not drive while taking narcotic pain medication(s) Off Work or School for 8 weeks Symptoms to report to doctor: * Bleeding that saturates more than one pad per hour * Passing clots larger than the size of a golf ball * Pain not relieved by prescribed medication * Fever above 100.4 degrees Fahrenheit * A foul vaginal odor * Difficulty in emotions, mood, and functions * Thoughts of hurting yourself and/or * Painful, reddened area in your breast * Any drainage, redness, or tenderness in your IV/epidural site * Severe headache that doesn't improve after taking medications * Changes in vision, including temporary loss of vision, blurred vision, and/or light sensitivity * Upper abdominal pain (usually under ribs on the right side) * Decrease in urination or painful, frequent urinating * Chest pain * Shortness of breath * Tenderness or pain with redness and/swelling in the calf(s) of your leg Call with BP greater than or equal to 160/110 Follow up 2-week visit (on 09/15/24): Recheck BP, discuss infant feeding concerns, review control options and screen for anxiety/depression. 6-week visit for an annual exam. consultation services are available to all mothers and babies for the first year after delivery.? To make an appointment, please call [phone]. Discharge Diet: Regular Follow Up Appointments: Jones Arnett MD [Primary Care Provider] - Forms: [employer] Info Instructions
[2024-09-11] MEDS: NIFEdipine ER 30 MG TAB PO (08:40)
== END 2024-09-11 10:30 | disposition home or self-care (01) | DRG 776 ==
LOC: ED 21:01 → OB 22:12
PROVIDERS: Obstetrics & Gynecology; Admitting Provider Obstetrics & Gynecology; Emergency Provider Family Medicine; PCP Family Medicine; Visit Provider Obstetrics & Gynecology
DX: O14.15 Severe pre-eclampsia, complicating the puerperium (principal)
CPT/HCPCS: 36415; 80048; 80076; 81001; 82565; 83615; 83735; 84156; 84450; 84460; 84520; 84550; 85025; 85027; 87086; 93005; 99284; 99285; A9270; J3475; J7030; J7120

== ENCOUNTER 2024-10-17 13:59 | Outpatient (CLI) | payer OTHER, SELFPAY | END 2024-10-17 14:00 | disposition home or self-care (01) | PROVIDERS: PCP Family Medicine; Visit Provider Physician Assistant | DX: O14.95 Unspecified pre-eclampsia, complicating the puerperium (principal) | CPT/HCPCS: 84450; 84460 ==

== ENCOUNTER 2024-10-24 10:07 | Outpatient (CLI) | payer OTHER, SELFPAY | END 2024-10-24 10:08 | disposition home or self-care (01) | LOC: NFLDREF 10:08 | PROVIDERS: PCP Family Medicine; Visit Provider Obstetrics & Gynecology | DX: R10.2 Pelvic and perineal pain (principal) | CPT/HCPCS: 87086 ==

== ENCOUNTER 2024-11-08 14:54 | Outpatient (CLI) | payer OTHER, SELFPAY | END 2024-11-08 14:55 | disposition home or self-care (01) | PROVIDERS: PCP Family Medicine; Visit Provider Family Medicine | DX: O13.5 Gestational [pregnancy-induced] hypertension without significant proteinuria, complicating the puerperium (principal) | CPT/HCPCS: 80053; 80061; 84443 ==

== ENCOUNTER 2024-11-22 07:08 | Outpatient (CLI) | payer OTHER, SELFPAY ==
--- NOTE | 2024-11-22 07:15 | CRLHL7_ITS ---
For Patients: As a result of the Century Cures Act, medical imaging exams and procedure reports are released immediately into your electronic medical record. You may view this report before your referring provider. If you have questions, please contact your health care provider. INDICATION: Elevated LFTs COMPARISON: none TECHNIQUE: Real time wills scale imaging and color Doppler analysis was performed of the right upper quadrant. FINDINGS: Liver measures 17.6 cm. Liver echotexture is mildly increased. No intrahepatic mass. There is a normal appearance of the hepatic IVC and proximal abdominal aorta. There is no evidence of ascites. The gallbladder is of normal size and there is no evidence of intraluminal stones or sludge. The gallbladder wall measures 1 mm in thickness. The common bile duct is of normal size and measures 4 mm in diameter at the level of the lauren hepatis. The visualized pancreas appears normal. There is no evidence of a stone or hydronephrosis within the right kidney. The right kidney measures 11.6 cm in length. IMPRESSION: Mild hepatomegaly with mild hepatic steatosis. Remainder unremarkable. Dictated by Gwyn Casey MD @ 11/22/2024 9:47:42 AM (Electronically Signed)
--- OUTSIDE RECORDS SUMMARY | 2024-11-23 00:34 | XMS_ITS | Clinical Summary ---
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 Gender Identity Not on file Sexual Orientation [...] 167.6 cm (5' 6) 04/08/2021 8:06 PM CLEANING SPECIALIST Body Mass Index - - Plan of [...] on patient's age to complete this topic Hepatitis B series for 19+ Completed 08/15, 2001, 2001 Procedures Procedure Name Priority Date/Time Associated Diagnosis Comments LAB TRACKING EVENT Routine 09/05/2024 3: 47 PM CDT PATH TISSUE EXAM PLACENTA Routine 09/05/2024 3:47 PM CDT from Last 3 Months Results * LAB TRACKING EVENT (09/05/2024 3:47 PM CDT) Other (Other) Client Collect / Unknown 09/05/2024 3:47 PM CDT 09/06/2024 1:38 PM CDT Brie Richards MD LAB BILL ONLY Final Res ult [facility] [address] [place] [address], [place] * PATH TISSUE EXAM PLACENTA (09/05/2024 3:47 PM CDT) Case Report Pathology Report Case: [id number] Authorizing Provider: Brie Richards MD Collected: 09/05/2024 1547 Ordering Location: [facility] Received: 09/06/2024 1447 Pathologist: Jessica Lowery MD Specimen: Placenta 09/08/2024 2:44 PM CDT [facility] Final Diagnosis A) PLACENTA, VAGINAL [...] diagnostic abnormalities identified 09/08/2024 2:44 PM CDT [facility] at 1444 CDT Comment The patient's clinical history of hypertension is noted. Some histologic features that can be associated with maternal hypertensive disorders include decidual vasculopathy, infarcts, abruption, villous maldevelopment, and small placental size. 09/08/2024 2:44 PM CDT [facility] Clinical Information Maternal hypertension. G2, P1. 39-week vaginal delivery. weight: 4685 g male infant born on 09/05/2023 at 15:47 09/08/2024 2:44 PM CDT [facility] Gross Description A) Received fresh [...] parenchyma consists of red-purple, spongy, homogenous tissue. Pattern Grader Supervisor sections are submitted: 1. membranes and insertion 2. Umbilical cord 3. Placental disc, full-thickness, umbilical cord insertion site 4-5. Central disc, full-thickness 6. Parenchymal lesion Time and date in formalin: 191 on 09/06/2024 [place] 09/06/2024 09/08/2024 2:44 PM CDT [facility] Microscopic Description The final diagnosis is based on microscopic examination of appropriate sections of all specimens. 09/08/2024 2:44 PM CDT [facility] Additional Information Interpreted at [facility] - [address] [facility] [address], [place] [address] 09/08/2024 2:44 PM CDT [facility] Tissue SPECIMEN FROM PLACENTA / Unknown 09/05/2024 3:47 PM CDT 09/06/2024 2:49 PM CDT us Brie Richards MD PATHOLOGY/CYTOLOGY Final Result [facility] [address] [place] [address], from Last 3 Months Insurance [employer] [place] [id number] [place] [id number] Care Teams Warranty Manager Relationship Specialty Start Date End Date Pcp, No . PCP - General 11/22/23
== END 2024-11-22 07:09 | disposition home or self-care (01) ==
LOC: US 07:09
PROVIDERS: PCP Family Medicine; Visit Provider Physician Assistant
DX: R74.8 Abnormal levels of other serum enzymes (principal); R16.0 Hepatomegaly, not elsewhere classified; K76.0 Fatty (change of) liver, not elsewhere classified
CPT/HCPCS: 76705

== ENCOUNTER 2024-12-06 14:02 | Outpatient (CLI) | payer OTHER, SELFPAY | END 2024-12-06 14:03 | disposition home or self-care (01) | LOC: NFLDREF 14:03 | PROVIDERS: PCP Family Medicine; Visit Provider Family Medicine | DX: R74.8 Abnormal levels of other serum enzymes (principal) | CPT/HCPCS: 80076 ==

== ENCOUNTER 2025-05-15 19:19 | Emergency (ER) | payer OTHER, SELFPAY ==
--- OUTSIDE RECORDS SUMMARY | 2025-05-15 19:21 | XMS_ITS | Clinical Summary ---
Author Organization [facility] Address [address] [place] [id number] Care Team Providers Care Driver'S License Reviewing Officer Name Role Phone Pcp, No Primary Care Provider Unavailabl e Allergies No known active allergies Medications No known medications Active Problems No known active problems Immunizations ImmunizationAdministration DatesNext ZyhNNsL0809/30/2006,08/16/2003,01/31/2002, 2001,2001HIB-HepB (Comvax)08/16/2003,2001,2001Hepatitis A (Peds)09/30/2006Inactivated Polio Ofvcwtl7309/30/2006,02/10/2002,2001, 2001MMR09/12/2002MMRV09/30/2006Pneumococcal conj 7-Valent (Prevnar 7) 01/31/2002,2001,2001Varicella Iwynotr6409/12/2002 Social History Tobacco UseTypesPacks/DayYears UsedDateSmoking Tobacco: Never Assessed Interpersonal SafetyAnswerDate RecordedAre you being hit, kicked, pushed or yelled at (see row info)?No11/22/2023Interpersonal Safety Abuse 12 - 18Not on file11/22/2023Interpersonal Safety Ambulatory VulnerabilityNot on file11/22/2023 CommentsNoSex and Gender InformationValueDate RecordedSex Assigned at BirthNot on fileLegal RzoExdkiz52/14/2013 5:45 AM CSTGender IdentityNot on file Sexual OrientationNot on file Last Filed Vital Signs Vital SignReadingTime TakenCommentsBlood Oyullrpa540/7206 9:33 AM CDT Rchxx2018 9:33 AM XPNJzlmsdlqewm81.3 ??C (97.3 ??F)11/22/2023 9:33 AM CDTRespiratory Cxlo714811/22/2023 9:33 AM CDTOxygen Ahttldyngk28%11/22/2023 9:33 AM CDTInhaled Oxygen Concentration--Foyhop613.5 kg (243 lb 8 oz)11/22/2023 9:33 AM KJJPynfun437.6 cm (5' 6)04/08/2021 8:06 PM CSTBody Mass Index-- Plan of Treatment Health MaintenanceDue DateLast DoneCommentsTetanus cfpzhfa0407/05/2012Depression screening for age 12+2013HIV for age 15-65007/05/2016HPV series for age 9- 45 (1 - 3-dose series)2016BMI (ht and wt on same day) for age 18+ 2019Hepatitis C screening for age 18-7907/05/2019Pap test for age 21-65 3COVID-19 vaccine series (2024- season)/, 12/31/2020Influenza Vaccine (#1)2025Pneumococcal series for age 6-49Aged Out01/31/2002, 2001, 2001No longer eligible based on patient's age to complete this topicHepatitis B series for 19+Uzmuziclv60/18/2004, 2001, 2001 Insurance ASHLEE GARCIA [id number] * Guarantor: Graciela Monique TypeRelation to PatientDate of BirthPhone Billing AddressPersonal/VydfcmLczzti17/05/1976 [address] [place] [phone] Care Teams Team MemberRelationshipSpecialtyStart DateEnd Date Pcp, No PCP - General11/22/23
[2025-05-15 19:39] VITALS: BP 148/87; PULSE 109; RESP 18; TEMP 36.9; O2SAT 96; BMI 36.0
[2025-05-15 20:46] LABS: PCR FLU A POSITIVE PCR FLU A (Negative); PCR FLU B Negative PCR FLU B (Negative); PCR RSV Negative PCR RSV (Negative); SARS PCR* Negative SARS-CoV-2 (Negative)
--- NOTE | 2025-05-15 21:04 | ED_ITS ---
HPI - General Adult General Date Seen: 05/15/25 Chief complaint: Cough Stated complaint: Cough Time Seen by Provider: 05/15/25 20:35 Source: patient Mode of arrival: ambulatory Limitations: no limitations History of Present Illness HPI narrative: Patient is a 24-year-old female presenting to the emergency department for a cough. States she has also had rhinorrhea, episodes of diarrhea some mild nausea and a headache. Headache is better at this time. States symptoms started 2 days ago. She states is the same time symptoms for her 2 sons also started. They were recently in contact with someone with influenza a. She denies any chest pain or shortness of breath. Denies any muscle aches. No other concerns noted at this time. Has not had any vomiting. Has been able eat and drink. Denies sore throat or earaches. Denies any sinus pain. Related Data Home Medications ?Medication ?Instructions ?Recorded ?Confirmed levonorgestrel 17.5 mcg/24 hr (up 1 device intrauterin e ONCE 11/15/24 12/06/24 to 5 yrs) 19.5mg intrauterine device (Kyleena) Previous Rx's ?Medication ?Instructions ?Recorded escitalopram oxalate 10 mg tablet 10 mg PO QDAY #90 ta bs 10/17/24 (Lexapro) oseltamivir 75 mg capsule 75 mg PO BID 5 days #10 caps 05/15/25 Allergies Allergy/AdvReac Type Severity Reaction Status Date / Time No Known Drug Allergies Allergy Verified 12/06/24 13:44 Review of Systems Status of ROS: Reports: 10 or more systems reviewed and unremarkable except as noted in History and below PFSH PFS Medical History Elevated liver enzymes (08/2024) ?R74.8 - Abnormal levels of other serum enzymes (ICD-10) Obesity (BMI 30.0-34.9) ?E66.811 - Obesity, class 1 (ICD-10) Recurrent major depressive disorder ?F33.9 - Major depressive disorder, recurrent, unspecified (ICD-10) Social phobia ?F40.10 - Social phobia, unspecified (ICD-10) Vulvovaginal candidiasis ?B37.31 - Acute candidiasis of vulva and vagina (ICD-10) GERD (gastroesophageal reflux disease) ?K21.9 - Gastro-esophageal reflux disease without esophagitis (ICD-10) Constipation ?K59.00 - Constipation, unspecified (ICD-10) Generalized anxiety disorder ?F41.1 - Generalized anxiety disorder (ICD-10) Spontaneous vaginal delivery (04/11/19) ?O80 - Encounter for full-term uncomplicated delivery (ICD-10) History of suicidal ideation ?Z86.59 - Personal history of other mental and behavioral disorders (ICD-10) History of self mutilation ?Z91.52 - Personal history of nonsuicidal self-harm (ICD-10) Dermatitis ?L30.9 - Dermatitis, unspecified (ICD-10) Acne ?L70.9 - Acne, unspecified (ICD-10) Surgical History Encounter for IUD insertion (11/15/24) ?Z30.430 - Encounter for insertion of intrauterine contraceptive device (ICD- 10) (normal spontaneous vaginal delivery) (09/05/24) ?O80 - Encounter for full-term uncomplicated delivery (ICD-10) Ross teeth removed (2020) ?K08.409 - Partial loss of teeth, unspecified cause, unspecified class (ICD-10) Family History Maternal Grandmother Breast cancer, Onset Age: 48 Diabetes Paternal Grandmother Ovarian cancer, Onset Age: 39 Mother Diabetes Paternal Grandfather Colon cancer, Onset Age: 48 Bile duct cancer Aunt Diabetes Social History Narrative: Significant other, 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 Marital status: Single. Mu-Ism/cultural needs: no. Chemical or radiation exposure: no. Pre- tobacco use: Yes, occasional vaping. Pre- alcohol use: Occasional. Current tobacco use: no. Current alcohol use: no. Recreational drug use: no. Dietary restrictions: no. Blood transfusion acceptable in an emergency: yes. PSYCHOSOCIAL HISTORY: History of depression or currently depressed: Yes, history. Current or past physical, emotional, or sexual mistreatment: Denies. Problems that will make it hard to make it to appointments: Denies. What is your current living situation?: I presently have a place to live Problems where you live: no known problems In the past 12 months, utilities in danger of being shut off: no In past 12 months, lack of transportation kept you from medical appts, meetings, work, or getting things needed for daily living: no In the past 12 mos, have been you worried that your food would run out before you had money to buy more?: never true In the past 12 mos, the food you bought just didn't last and you didn't have money to buy more?: never true Highest level of school completed/degree received: high school graduate Physical activity type: walking Smoking Status: Former smoker Non-prescribed substance use: denies use How often does anyone, including family, friends and others, physically hurt you : never How often does anyone, including family, friends and others, insult or talk down to you: never How often does anyone, including family, friends and others, threaten you with harm: never How often does anyone, including family, friends and others, scream or curse at you: never Exam Narrative: Exam Narrative: Const: Well-nourished, Well-developed, in mild distress Eyes: PERRL, no conjunctival injection, and symmetrical lids HENT: Atraumatic external nose and ears. Moist mucous membranes. Neck: Symmetric, trachea midline, No thyromegaly. CVS: RRR, No murmurs or gallops. Peripheral pulses 2+ and equal in all extremities RESP: Unlabored respiratory effort. Clear to auscultation bilaterally. GI: Nontender/Nondistended, No rebound or guarding. MSK:Extremities w/o deformity, Normal Active ROM Skin: Warm, Dry. No rashes or lesions. Neuro: Normal Muscle tone, No focal neurological deficits. Psych: Awake, Alert, & Oriented x3. Appropriate mood and affect. Const: Vital Signs, click to edit/add: Vital Signs - 24 hr 05/15/25 19:39 Temperature 98.5 F Pulse Rate [Left P ulse Oximeter] 109 H Respiratory Rate 18 Blood Pressure [Ri ght Upper Arm] 148/87 H Pulse Oximetry 96 Oxygen Delivery Me thod Room Air Course Vital Signs Vital signs: Initial Vital Signs Temperature 98.5 F 05/15/25 19:39 Temperature Source Temporal Artery Scan 05/15/25 19:39 Pulse Rate 109 H 05/15/25 19:39 Pulse Rhythm Regular 05/15/25 19:39 Respiratory Rate 18 05/15/25 19:39 Blood Pressure 148/87 H 05/15/25 19:39 Blood Pressure Mean 107 H 05/15/25 19:39 Blood Pressure Position Sitting 05/15/25 19:39 Pulse Oximetry 96 05/15/25 19:39 Oxygen Delivery Method Room Air 05/15/25 19:39 Vital Signs Temperature 98.5 F 05/15/25 19:39 Pulse Rate 109 H 05/15/25 19:39 Respiratory Rate 18 05/15/25 19:39 Blood Pressure 148/87 H 05/15/25 19:39 Pulse Oximetry 96 05/15/25 19:39 Oxygen Delivery Method Room Air 05/15/25 19:39 Temperature 98.5 F 05/15/25 19:39 Pulse Rate 109 H 05/15/25 19:39 Respiratory Rate 18 05/15/25 19:39 Blood Pressure 148/87 H 05/15/25 19:39 Pulse Oximetry 96 05/15/25 19:39 Oxygen Delivery Method Room Air 05/15/25 19:39 Medical Decision Making MDM Narrative Medical decision making narrative: Patient is a 24-year-old female presenting to the emergency department for viral symptoms. She is symptoms for 2 days just like her 2 children after being exposed to someone with influenza a. That person was diagnosed with it today. She is otherwise doing well. Symptoms are most likely viral in nature. Will order viral swabs. She was slightly tachycardic in triage but she states that was due to having to carry her son who is relatively heavy for his age. States that made her feel short of breath but she does not feel short of breath otherwise. I do not believe imaging oral lab work is indicated. I did speak to her about possibly doing imaging to check for signs pneumonia but after shared decision making it was decided to only do the viral swabs. Viral swabs came back positive for influenza A. She would like Tamiflu prescribed. This will be ordered. She will be discharged. She is agreeable to this plan. Lab Data Labs: Lab Results 05/15/25 Range/Units 19:21 SARS-CoV-2 (PCR) Negative SARS-CoV-2 (Negative) Influenza Type A (PCR) POSITIVE PCR FLU A A (Negative) Influenza Type B (PCR) Negative PCR FLU B (Negative) RSV (PCR) Negative PCR RSV (Negative) Discharge Plan Discharge Clinical Impression: Influenza A Patient Disposition: Home, Self-Care Condition: Stable Additional Instructions: Take Tylenol and ibuprofen for symptoms. Symptoms should improve on their own. Use Tamiflu as directed. Return to emergency department for new or worsening symptoms. Prescriptions: New oseltamivir 75 mg capsule 75 mg PO BID 5 Days Qty: 10 0RF No Action escitalopram oxalate [Lexapro] 10 mg tablet 10 mg PO QDAY Qty: 90 0RF Kyleena 17.5 mcg/24 hr (5 yrs) 19.5 mg intrauterine device 1 device intrauterine ONCE Rx Instructions: as a single dose Follow Up/Referrals: Massiel Brown MD [Primary Care Provider, Family Practice] Stand Alone Forms: Work/School Release, [facility] Inst[facility]
[2025-05-15 21:11] VITALS: BP 135/75; PULSE 100; RESP 18; TEMP 36.9; O2SAT 96
== END 2025-05-15 21:12 | disposition home or self-care (01) ==
PROVIDERS: Emergency Provider Student in an Organized Health Care Education/Training Program; PCP Family Medicine
DX: J10.1 Influenza due to other identified influenza virus with other respiratory manifestations (principal)
CPT/HCPCS: 87631; 99283